=== PATIENT | male | born 1960 | race Caucasian/White ===

== ENCOUNTER → 2016-07-23 | Outpatient (CLI) | payer OTHER ==
[~2016-07-23] MED LIST: D 50CAP PO; GLIP5TAB15 PO; INVO100T PO; LISI10TA4 PO; LORATAB PO; OMEP40CA2 PO
--- NOTE | 2016-07-23 12:49 | REP ---
RIGHT HIP SERIES: Two views. HISTORY: Right hip pain. Comparison radiographs are from April 08, 2003. FINDINGS: AP and frog-leg views of the right hip demonstrate a smooth rounded femoral head and an intact hip joint space. There is mild superior acetabular spurring noted. No erosive change is seen. Periarticular soft tissues are unremarkable. IMPRESSION: Mild superior acetabular spurring. Otherwise negative right hip radiographs. Signed by Glen Pascual MD 07/23/2016 12:51 P
== END ==
LOC: M RAD 08:17
PROVIDERS: ATTEND Physician Assistant Medical
DX: M25.551 Pain in right hip (principal)

== ENCOUNTER → 2016-08-05 | Outpatient (REF) | payer OTHER ==
[2016-08-05 13:00] LABS: ALBUMIN 4.3 GM/DL (3.2-5.2); ALBUMIN/GLOBULIN RATIO 1.16 (1.00-1.93); ALKALINE PHOSPHATASE 69 U/L (45-117); ALT/SGPT 80 U/L (12-78); ANION GAP 6 MEQ/L (8-16); AST/SGOT 28 U/L (15-37); BILIRUBIN,TOTAL 0.5 MG/DL (0.2-1.0); BLOOD UREA NITROGEN 24 MG/DL (7-18); CARBON DIOXIDE LEVEL 33 MEQ/L (21-32); CHLORIDE LEVEL 103 MEQ/L (98-107); CHOLESTEROL LEVEL 168 MG/DL (<200); CREATININE FOR GFR 1.15 MG/DL (0.70-1.30); GLOMERULAR FILTRATION RATE > 60.0 (>56); GLUCOSE, FASTING 209 MG/DL (70-105); POTASSIUM SERUM 4.6 MEQ/L (3.5-5.1); SODIUM LEVEL 142 MEQ/L (136-145); TRIGLYCERIDES LEVEL 308 MG/DL (<150)
== END ==
LOC: M SFHCADAM 07:55
PROVIDERS: ATTEND Physician Assistant Medical
DX: E11.9 Type 2 diabetes mellitus without complications (principal); E78.4 Other hyperlipidemia; R55 Syncope and collapse; E55.9 Vitamin D deficiency, unspecified

== ENCOUNTER 2016-08-07 11:52 | Emergency (ER) | payer OTHER ==
[2016-08-07] MEDS ORDERED: KETOROLAC 30 MG/ML VIAL (J1885) As Ordered ONE (12:52)
--- NOTE | 2016-08-07 14:22 | EDDOCDS ---
Physician Documentation [facility] Name: Vito Humphries Age: 55 yrs Sex: Male : 1960 Arrival Date: 08/07/2016 Time: 11:52 Bed PR Private MD: Tara Rosario N. Disposition: 08/07/16 13:29 Discharged to Home/Self Care. Impression: Low back pain - mechanical. - Condition is Stable. - Discharge Instructions: Back Pain, Adult. - Prescriptions for Naprosyn 500 mg Oral Tablet - take 1 tablet by ORAL route 2 times per day take with food; 30 tablet. Valium 5 mg Oral Tablet - take 1 tablet by ORAL route every 8 hours As needed MDD: 3 tabs; 15 tablet. - Medication Reconciliation form. - Follow up: Tara Rosario; When: Call to arrange an appointment; Reason: Wound/Symptom Recheck, Recheck today's complaints, Worsening of conditions, Continuance of care. - Problem is an acute exacerbation. - Symptoms have improved. Historical: - Allergies: Metformin HCl (uncontrollable bowel movements); - Home Meds: 1. atorvastatin 40 mg oral tab 1 tab once daily 2. Invokana 100 mg oral tab 1 tab once daily 3. omeprazole 40 mg Oral cpDR 1 cap once daily 4. glipizide 5 mg Oral tab 1 tab once daily 5. loratadine 10 mg Oral tab 1 tab once daily 6. Vitamin D3 5,000 unit oral tab daily 7. spironolactone 25 mg Oral tab 0.5 tab once daily 8. losartan 50 mg oral tab 1 tab once daily 9. aspirin 81 mg Oral chew 1 tab once daily - PMHx: Diabetes - NIDDM: controlled; GERD; Hypertension; Seasonal Allergies; - PSHx: Shoulder Arthroplasty. Right; - Social history: Smoking status: Patient states former smoker of tobacco. No barriers to communication noted, The patient speaks fluent Yi. - Family history: No immediate family members are acutely ill. - : The pt / caregiver states he / she is not on anticoagulants. Home medication list is obtained from the patient, [employer] import data. - Exposure Risk Screening:: None identified. Vital Signs: 08/07 11:54 BP 105 / 58; Pulse 99; Resp 18 S; Temp 97.3(O); Pulse Ox 97% on R/A; Weight 103.42 kg / gr2 228 lbs (R); Height 6 ft. 0 in. (182.88 cm) (R); Pain 10/10; 13:40 BP 143 / 82; Pulse 71; Resp 17; Temp 97.4(T); Pulse Ox 98% on R/A; Pain 0/10; mb9 13:40 Pain 0/10; mb9 13:40 Pain 0/10; mb9 11:54 Body Mass Index 30.92 (103.42 kg, 182.88 cm) gr2 MDM: 12:45 Financial registration complete. lg 12:48 ketorolac 60 mg IM once ordered. cc10 12:48 Diazepam 10 mg IM once ordered. cc10 12:54 [facility] Payment Agreement was scanned into [employer] and attached to record. lg 13:16 Vital Signs ordered. cc10 Administered Medications: 13:02 Drug: ketorolac 60 mg [ketorolac 30 mg/mL (1 mL) injection solution (2 mL)] Route: IM; mb9 Site: right gluteus; 13:40 Follow up: Pain 0/10 Adult; Response: Confirmed pt not driving.; Pain is resolved mb9 13:02 Drug: Diazepam 10 mg [diazepam 5 mg/mL injection syringe (2 mL)] Route: IM; Site: left mb9 gluteus; 13:40 Follow up: Pain 0/10 Adult; Response: Confirmed pt not driving.; Pain is resolved mb9 Signatures: Vicky Eric, Reg Reg lg Kenyon Romero PA-C PAShahla cc10 Nisreen Hillman RN RN ms18 Foster Wiseman RN RN mb9 The chart was reviewed and I authenticate all verbal orders and agree with the evaluation and treatment provided.Attachments: 12:54 [facility] Payment Agreement lg MTDD
--- NOTE | 2016-08-07 14:22 | EDDOCDS ---
Nurse's Notes [facility] Name: Vito Humphries Age: 55 yrs Sex: Male : 1960 Arrival Date: 08/07/2016 Time: 11:52 Bed PR Private MD: Tara Rosario N. Diagnosis: Low back pain-mechanical Presentation: 08/07 11:59 Presenting complaint: Patient states: that Friday morning he was shoveling snow, he ms18 twisted around and pt reports that he "" his lower back. Pt states that when this happens he normally comes here and gets 2 shots in his lower back. Acute neurological deficits are not present. Mechanism of Injury: Turning. Adult Sepsis Screening: The patient does not have new or worsening altered mentation. Patient's respiratory rate is less than 22. Systolic blood pressure is greater than 100. Patient has a qSOFA score of 0- Negative Sepsis Screen. Suicide/Homicide risk assessment- the patient denies having any suicidal and/or homicidal ideations and does not present with any other emotional, behavioral or mental health complaints. 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 Transition of care: patient was not received from another setting of care. 11:59 Acuity: SHILA Level 4 ms18 11:59 Method Of Arrival: Walkin/Carried/Asstd ms18 Triage Assessment: 12:02 General: Appears in no apparent distress, uncomfortable, Behavior is appropriate for ms18 age, cooperative. Pain: Location: low back area Pain currently is 10 out of 10 on a pain scale. HIV screening NA for this visit Offered previously. Neurological: Level of Consciousness is awake, alert, obeys commands, Oriented to person, place, time. Respiratory: No deficits noted. Derm: Skin is pink, warm & dry. Musculoskeletal: Reports pain in low back area. Historical: - Allergies: Metformin HCl (uncontrollable bowel movements); - Home Meds: 1. atorvastatin 40 mg oral tab 1 tab once daily 2. Invokana 100 mg oral tab 1 tab once daily 3. omeprazole 40 mg Oral cpDR 1 cap once daily 4. glipizide 5 mg Oral tab 1 tab once daily 5. loratadine 10 mg Oral tab 1 tab once daily 6. Vitamin D3 5,000 unit oral tab daily 7. spironolactone 25 mg Oral tab 0.5 tab once daily 8. losartan 50 mg oral tab 1 tab once daily 9. aspirin 81 mg Oral chew 1 tab once daily - PMHx: Diabetes - NIDDM: controlled; GERD; Hypertension; Seasonal Allergies; - PSHx: Shoulder Arthroplasty. Right; - Social history: Smoking status: Patient states former smoker of tobacco. No barriers to communication noted, The patient speaks fluent Maltese. - Family history: No immediate family members are acutely ill. - : The pt / caregiver states he / she is not on anticoagulants. Home medication list is obtained from the patient, [employer] import data. - Exposure Risk Screening:: None identified. Screenin:02 Screening information is obtained from the patient. Fall risk: No risks identified. mb9 Assistance ADL's: requires no assistance with activities of daily living. Abuse/DV Screen: The patient / caregiver reports he/she is: not in a situation that causes fear, pain or injury. Nutritional screening: No deficits noted. Advance Directives: There is no active DNR order. home support is adequate. Assessment: 13:02 General: Appears uncomfortable, Behavior is cooperative. Pain: Location: low back area mb9 Pain currently is 8 out of 10 on a pain scale. Neurological: Level of Consciousness is awake, alert, Oriented to person, place, time. Respiratory: Airway is patent Respiratory effort is even, unlabored. 14:19 Reassessment: Patient appears in no apparent distress at this time. Patient states mb9 feeling better. General: Appears in no apparent distress, Behavior is appropriate for age, cooperative. Respiratory: Airway is patent Respiratory effort is even, unlabored. Vital Signs: 11:54 BP 105 / 58; Pulse 99; Resp 18 S; Temp 97.3(O); Pulse Ox 97% on R/A; Weight 103.42 kg gr2 (R); Height 6 ft. 0 in. (182.88 cm) (R); Pain 10/10; 13:40 BP 143 / 82; Pulse 71; Resp 17; Temp 97.4(T); Pulse Ox 98% on R/A; Pain 0/10; mb9 13:40 Pain 0/10; mb9 13:40 Pain 0/10; mb9 11:54 Body Mass Index 30.92 (103.42 kg, 182.88 cm) gr2 Vitals: 11:54 Log In Time: August 07, 2016 at 11:54. gr2 ED Course: 11:54 Patient visited by Briana Del Rio. gr2 11:54 aTra Rosario is Private Physician. gr2 11:54 Patient moved to Waiting gr2 11:57 Patient visited by Briana Del Rio. gr2 11:57 Patient moved to Pre RCE gr2 12:00 Triage Initiated ms18 12:26 Patient moved to Triage 1 mlb1 12:42 Kenyon Romero PA-C is PHCP. cc10 12:42 Noel Zhong MD is Attending Physician. cc10 12:43 Patient visited by Kenyon Romero PA-C. cc10 12:43 Patient visited by Kenyon Romero PA-C. cc10 12:54 [facility] Payment Agreement was scanned into [employer] and attached to record. lg 12:55 Patient moved to PR2 / 26 mb9 13:02 The patient / caregiver is instructed regarding the plan of care and ED course. mb9 13:29 Tara Rosario is Referral Physician. cc10 14:19 No IV's were initiated during this patient's visit. No procedures done that require mb9 assistance. Administered Medications: 13:02 Drug: ketorolac 60 mg [ketorolac 30 mg/mL (1 mL) injection solution (2 mL)] Route: IM; mb9 Site: right gluteus; 13:40 Follow up: Pain 0/10 Adult; Response: Confirmed pt not driving.; Pain is resolved mb9 13:02 Drug: Diazepam 10 mg [diazepam 5 mg/mL injection syringe (2 mL)] Route: IM; Site: left mb9 gluteus; 13:40 Follow up: Pain 0/10 Adult; Response: Confirmed pt not driving.; Pain is resolved mb9 Order Results: There are currently no results for this order. Outcome: 13:29 Discharge ordered by Provider. cc10 14:19 Discharge Assessment: Patient awake, alert and oriented x 3. No cognitive and/or mb9 functional deficits noted. Patient verbalized understanding of disposition instructions. pt states, "I have a friend coming to pick me up". pt cautioned against driving after having received Valium. pt verbalized his understanding. patient administered narcotics - yes. Pt provided with safe discharge. The following High Risk Discharge criteria are identified: None. Discharged to home ambulatory, with family, with friend. Condition: good Condition: stable Condition: improved. No special radiology studies were completed. Property :Personal belongings accompany Pt. 14:21 Patient left the ED. mb9 Signatures: Vicky Eric, Reg Reg lg Foster Marr RN RN mlb1 Briana Del Rio gr2 Kenyon Romero PA-C PAShahla cc10 Nisreen Hillman RN RN ms18 Foster Wiseman RN RN mb9 MTDD
--- NOTE | 2016-08-09 15:22 | EDDOCDS ---
Nurse's Notes [facility] Name: Vito Humphries Age: 55 yrs Sex: Male : 1960 Arrival Date: 08/07/2016 Time: 11:52 Bed PR Private MD: Tara Rosario N. Diagnosis: Low back pain-mechanical Presentation: 08/07 11:59 Presenting complaint: Patient states: that Friday morning he was shoveling snow, he ms18 twisted around and pt reports that he "" his lower back. Pt states that when this happens he normally comes here and gets 2 shots in his lower back. Acute neurological deficits are not present. Mechanism of Injury: Turning. Adult Sepsis Screening: The patient does not have new or worsening altered mentation. Patient's respiratory rate is less than 22. Systolic blood pressure is greater than 100. Patient has a qSOFA score of 0- Negative Sepsis Screen. Suicide/Homicide risk assessment- the patient denies having any suicidal and/or homicidal ideations and does not present with any other emotional, behavioral or mental health complaints. 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 Transition of care: patient was not received from another setting of care. 11:59 Acuity: SHILA Level 4 ms18 11:59 Method Of Arrival: Walkin/Carried/Asstd ms18 Triage Assessment: 12:02 General: Appears in no apparent distress, uncomfortable, Behavior is appropriate for ms18 age, cooperative. Pain: Location: low back area Pain currently is 10 out of 10 on a pain scale. HIV screening NA for this visit Offered previously. Neurological: Level of Consciousness is awake, alert, obeys commands, Oriented to person, place, time. Respiratory: No deficits noted. Derm: Skin is pink, warm & dry. Musculoskeletal: Reports pain in low back area. Historical: - Allergies: Metformin HCl (uncontrollable bowel movements); - Home Meds: 1. atorvastatin 40 mg oral tab 1 tab once daily 2. Invokana 100 mg oral tab 1 tab once daily 3. omeprazole 40 mg Oral cpDR 1 cap once daily 4. glipizide 5 mg Oral tab 1 tab once daily 5. loratadine 10 mg Oral tab 1 tab once daily 6. Vitamin D3 5,000 unit oral tab daily 7. spironolactone 25 mg Oral tab 0.5 tab once daily 8. losartan 50 mg oral tab 1 tab once daily 9. aspirin 81 mg Oral chew 1 tab once daily - PMHx: Diabetes - NIDDM: controlled; GERD; Hypertension; Seasonal Allergies; - PSHx: Shoulder Arthroplasty. Right; - Social history: Smoking status: Patient states former smoker of tobacco. No barriers to communication noted, The patient speaks fluent Ukrainian. - Family history: No immediate family members are acutely ill. - : The pt / caregiver states he / she is not on anticoagulants. Home medication list is obtained from the patient, [employer] import data. - Exposure Risk Screening:: None identified. Screenin:02 Screening information is obtained from the patient. Fall risk: No risks identified. mb9 Assistance ADL's: requires no assistance with activities of daily living. Abuse/DV Screen: The patient / caregiver reports he/she is: not in a situation that causes fear, pain or injury. Nutritional screening: No deficits noted. Advance Directives: There is no active DNR order. home support is adequate. Assessment: 13:02 General: Appears uncomfortable, Behavior is cooperative. Pain: Location: low back area mb9 Pain currently is 8 out of 10 on a pain scale. Neurological: Level of Consciousness is awake, alert, Oriented to person, place, time. Respiratory: Airway is patent Respiratory effort is even, unlabored. 14:19 Reassessment: Patient appears in no apparent distress at this time. Patient states mb9 feeling better. General: Appears in no apparent distress, Behavior is appropriate for age, cooperative. Respiratory: Airway is patent Respiratory effort is even, unlabored. Vital Signs: 11:54 BP 105 / 58; Pulse 99; Resp 18 S; Temp 97.3(O); Pulse Ox 97% on R/A; Weight 103.42 kg gr2 (R); Height 6 ft. 0 in. (182.88 cm) (R); Pain 10/10; 13:40 BP 143 / 82; Pulse 71; Resp 17; Temp 97.4(T); Pulse Ox 98% on R/A; Pain 0/10; mb9 13:40 Pain 0/10; mb9 13:40 Pain 0/10; mb9 11:54 Body Mass Index 30.92 (103.42 kg, 182.88 cm) gr2 Vitals: 11:54 Log In Time: August 07, 2016 at 11:54. gr2 ED Course: 11:54 Patient visited by Briana Del Rio. gr2 11:54 Tara Rosario is Private Physician. gr2 11:54 Patient moved to Waiting gr2 11:57 Patient visited by Briana Del Rio. gr2 11:57 Patient moved to Pre RCE gr2 12:00 Triage Initiated ms18 12:26 Patient moved to Triage 1 mlb1 12:42 Kenyon Romero PA-C is PHCP. cc10 12:42 Noel Zhong MD is Attending Physician. cc10 12:43 Patient visited by Kenyon Romero PA-C. cc10 12:43 Patient visited by Kenyon Romero PA-C. cc10 12:54 [facility] Payment Agreement was scanned into [employer] and attached to record. lg 12:55 Patient moved to PR2 / 26 mb9 13:02 The patient / caregiver is instructed regarding the plan of care and ED course. mb9 13:29 Tara Rosario is Referral Physician. cc10 14:19 No IV's were initiated during this patient's visit. No procedures done that require mb9 assistance. 15:29 T-Sheet-- Draft Copy was scanned into [employer] and attached to record. klr Administered Medications: 13:02 Drug: ketorolac 60 mg [ketorolac 30 mg/mL (1 mL) injection solution (2 mL)] Route: IM; mb9 Site: right gluteus; 13:40 Follow up: Pain 0/10 Adult; Response: Confirmed pt not driving.; Pain is resolved mb9 13:02 Drug: Diazepam 10 mg [diazepam 5 mg/mL injection syringe (2 mL)] Route: IM; Site: left mb9 gluteus; 13:40 Follow up: Pain 0/10 Adult; Response: Confirmed pt not driving.; Pain is resolved mb9 Order Results: There are currently no results for this order. Outcome: 13:29 Discharge ordered by Provider. cc10 14:19 Discharge Assessment: Patient awake, alert and oriented x 3. No cognitive and/or mb9 functional deficits noted. Patient verbalized understanding of disposition instructions. pt states, "I have a friend coming to pick me up". pt cautioned against driving after having received Valium. pt verbalized his understanding. patient administered narcotics - yes. Pt provided with safe discharge. The following High Risk Discharge criteria are identified: None. Discharged to home ambulatory, with family, with friend. Condition: good Condition: stable Condition: improved. No special radiology studies were completed. Property :Personal belongings accompany Pt. 14:21 Patient left the ED. mb9 Signatures: Vicky Eric, Reg Reg lg Foster Marr RN RN mlb1 Briana Del Rio gr2 Kenyon Romero PA-C PA-C cc10 Nisreen Hillman RN RN ms18 Foster Wiseman RN RN mb9 Ewa Garcia Chart Complete MTDD
--- NOTE | 2016-08-09 15:22 | EDDOCDS ---
Physician Documentation [facility] Name: Vito Humphries Age: 55 yrs Sex: Male : 1960 Arrival Date: 08/07/2016 Time: 11:52 Bed PR Private MD: Tara Rosario N. Disposition: 08/07/16 13:29 Discharged to Home/Self Care. Impression: Low back pain - mechanical. - Condition is Stable. - Discharge Instructions: Back Pain, Adult. - Prescriptions for Naprosyn 500 mg Oral Tablet - take 1 tablet by ORAL route 2 times per day take with food; 30 tablet. Valium 5 mg Oral Tablet - take 1 tablet by ORAL route every 8 hours As needed MDD: 3 tabs; 15 tablet. - Medication Reconciliation form. - Follow up: Tara Rosario; When: Call to arrange an appointment; Reason: Wound/Symptom Recheck, Recheck today's complaints, Worsening of conditions, Continuance of care. - Problem is an acute exacerbation. - Symptoms have improved. Historical: - Allergies: Metformin HCl (uncontrollable bowel movements); - Home Meds: 1. atorvastatin 40 mg oral tab 1 tab once daily 2. Invokana 100 mg oral tab 1 tab once daily 3. omeprazole 40 mg Oral cpDR 1 cap once daily 4. glipizide 5 mg Oral tab 1 tab once daily 5. loratadine 10 mg Oral tab 1 tab once daily 6. Vitamin D3 5,000 unit oral tab daily 7. spironolactone 25 mg Oral tab 0.5 tab once daily 8. losartan 50 mg oral tab 1 tab once daily 9. aspirin 81 mg Oral chew 1 tab once daily - PMHx: Diabetes - NIDDM: controlled; GERD; Hypertension; Seasonal Allergies; - PSHx: Shoulder Arthroplasty. Right; - Social history: Smoking status: Patient states former smoker of tobacco. No barriers to communication noted, The patient speaks fluent Japanese. - Family history: No immediate family members are acutely ill. - : The pt / caregiver states he / she is not on anticoagulants. Home medication list is obtained from the patient, [employer] import data. - Exposure Risk Screening:: None identified. Vital Signs: 08/07 11:54 BP 105 / 58; Pulse 99; Resp 18 S; Temp 97.3(O); Pulse Ox 97% on R/A; Weight 103.42 kg / gr2 228 lbs (R); Height 6 ft. 0 in. (182.88 cm) (R); Pain 10/10; 13:40 BP 143 / 82; Pulse 71; Resp 17; Temp 97.4(T); Pulse Ox 98% on R/A; Pain 0/10; mb9 13:40 Pain 0/10; mb9 13:40 Pain 0/10; mb9 11:54 Body Mass Index 30.92 (103.42 kg, 182.88 cm) gr2 MDM: 12:45 Financial registration complete. lg 12:48 ketorolac 60 mg IM once ordered. cc10 12:48 Diazepam 10 mg IM once ordered. cc10 12:54 [facility] Payment Agreement was scanned into [employer] and attached to record. lg 13:16 Vital Signs ordered. cc10 15:29 T-Sheet-- Draft Copy was scanned into [employer] and attached to record. klr Administered Medications: 13:02 Drug: ketorolac 60 mg [ketorolac 30 mg/mL (1 mL) injection solution (2 mL)] Route: IM; mb9 Site: right gluteus; 13:40 Follow up: Pain 0/10 Adult; Response: Confirmed pt not driving.; Pain is resolved mb9 13:02 Drug: Diazepam 10 mg [diazepam 5 mg/mL injection syringe (2 mL)] Route: IM; Site: left mb9 gluteus; 13:40 Follow up: Pain 0/10 Adult; Response: Confirmed pt not driving.; Pain is resolved mb9 Signatures: Vicky Eric, Tonio Reg lg Kenyon Romero PA-C PA-C cc10 Nisreen Hillman RN RN ms18 Foster Wiseman RN RN mb9 Ewa Garcia klr The chart was reviewed and I authenticate all verbal orders and agree with the evaluation and treatment provided.Attachments: 12:54 [facility] Payment Agreement lg 15:29 T-Sheet-- Draft Copy klr Chart Complete MTDD
--- NOTE | 2016-08-09 15:22 | EDDOCDS ---
Physician Documentation [facility] Name: Vito Humphries Age: 55 yrs Sex: Male : 1960 Arrival Date: 08/07/2016 Time: 11:52 Bed PR Private MD: Tara Rosario N. Disposition: 08/07/16 13:29 Discharged to Home/Self Care. Impression: Low back pain - mechanical. - Condition is Stable. - Discharge Instructions: Back Pain, Adult. - Prescriptions for Naprosyn 500 mg Oral Tablet - take 1 tablet by ORAL route 2 times per day take with food; 30 tablet. Valium 5 mg Oral Tablet - take 1 tablet by ORAL route every 8 hours As needed MDD: 3 tabs; 15 tablet. - Medication Reconciliation form. - Follow up: Tara Rosario; When: Call to arrange an appointment; Reason: Wound/Symptom Recheck, Recheck today's complaints, Worsening of conditions, Continuance of care. - Problem is an acute exacerbation. - Symptoms have improved. Historical: - Allergies: Metformin HCl (uncontrollable bowel movements); - Home Meds: 1. atorvastatin 40 mg oral tab 1 tab once daily 2. Invokana 100 mg oral tab 1 tab once daily 3. omeprazole 40 mg Oral cpDR 1 cap once daily 4. glipizide 5 mg Oral tab 1 tab once daily 5. loratadine 10 mg Oral tab 1 tab once daily 6. Vitamin D3 5,000 unit oral tab daily 7. spironolactone 25 mg Oral tab 0.5 tab once daily 8. losartan 50 mg oral tab 1 tab once daily 9. aspirin 81 mg Oral chew 1 tab once daily - PMHx: Diabetes - NIDDM: controlled; GERD; Hypertension; Seasonal Allergies; - PSHx: Shoulder Arthroplasty. Right; - Social history: Smoking status: Patient states former smoker of tobacco. No barriers to communication noted, The patient speaks fluent Japanese. - Family history: No immediate family members are acutely ill. - : The pt / caregiver states he / she is not on anticoagulants. Home medication list is obtained from the patient, [employer] import data. - Exposure Risk Screening:: None identified. Vital Signs: 08/07 11:54 BP 105 / 58; Pulse 99; Resp 18 S; Temp 97.3(O); Pulse Ox 97% on R/A; Weight 103.42 kg / gr2 228 lbs (R); Height 6 ft. 0 in. (182.88 cm) (R); Pain 10/10; 13:40 BP 143 / 82; Pulse 71; Resp 17; Temp 97.4(T); Pulse Ox 98% on R/A; Pain 0/10; mb9 13:40 Pain 0/10; mb9 13:40 Pain 0/10; mb9 11:54 Body Mass Index 30.92 (103.42 kg, 182.88 cm) gr2 MDM: 12:45 Financial registration complete. lg 12:48 ketorolac 60 mg IM once ordered. cc10 12:48 Diazepam 10 mg IM once ordered. cc10 12:54 [facility] Payment Agreement was scanned into [employer] and attached to record. lg 13:16 Vital Signs ordered. cc10 15:29 T-Sheet-- Draft Copy was scanned into [employer] and attached to record. klr Administered Medications: 13:02 Drug: ketorolac 60 mg [ketorolac 30 mg/mL (1 mL) injection solution (2 mL)] Route: IM; mb9 Site: right gluteus; 13:40 Follow up: Pain 0/10 Adult; Response: Confirmed pt not driving.; Pain is resolved mb9 13:02 Drug: Diazepam 10 mg [diazepam 5 mg/mL injection syringe (2 mL)] Route: IM; Site: left mb9 gluteus; 13:40 Follow up: Pain 0/10 Adult; Response: Confirmed pt not driving.; Pain is resolved mb9 Signatures: Vicky Eric, Tonio Reg lg Kenyon Romero PA-C PA-C cc10 Nisreen Hillman RN RN ms18 Foster Wiseman RN RN mb9 Ewa Garcia klr The chart was reviewed and I authenticate all verbal orders and agree with the evaluation and treatment provided.Attachments: 12:54 [facility] Payment Agreement lg 15:29 T-Sheet-- Draft Copy klr Chart Complete MTDD
== END 2016-08-07 14:21 | disposition home or self-care (01) ==
LOC: M ED 11:52
DX: G89.29 Other chronic pain (principal); M54.5 Low back pain; E11.9 Type 2 diabetes mellitus without complications; K21.9 Gastro-esophageal reflux disease without esophagitis; I10 Essential (primary) hypertension; J30.2 Other seasonal allergic rhinitis; Z96.611 Presence of right artificial shoulder joint; Z87.891 Personal history of nicotine dependence; Z79.82 Long term (current) use of aspirin; Z79.899 Other long term (current) drug therapy; Z88.8 Allergy status to other drugs, medicaments and biological substances
CPT/HCPCS: 96372; 99283; J1885; J3360

== ENCOUNTER → 2016-11-06 | Outpatient (CLI) | payer OTHER ==
[2016-11-06 08:45] LABS: ALBUMIN 3.8 GM/DL (3.2-5.2); ALBUMIN/GLOBULIN RATIO 1.12 (1.00-1.93); ALKALINE PHOSPHATASE 57 U/L (45-117); ALT/SGPT 83 U/L (12-78); ANION GAP 4 MEQ/L (8-16); AST/SGOT 40 U/L (15-37); BILIRUBIN,TOTAL 0.8 MG/DL (0.2-1.0); BLOOD UREA NITROGEN 22 MG/DL (7-18); CALCIUM LEVEL 8.7 MG/DL (8.5-10.1); CARBON DIOXIDE LEVEL 32 MEQ/L (21-32); CHLORIDE LEVEL 105 MEQ/L (98-107); CREATININE FOR GFR 1.03 MG/DL (0.70-1.30); GLOMERULAR FILTRATION RATE > 60.0 (>56); GLUCOSE, FASTING 110 MG/DL (70-105); POTASSIUM SERUM 3.9 MEQ/L (3.5-5.1); SODIUM LEVEL 141 MEQ/L (136-145); TOTAL PROTEIN 7.2 GM/DL (6.4-8.2)
== END ==
LOC: M LAB 07:35
PROVIDERS: ATTEND Physician Assistant Medical
DX: E11.9 Type 2 diabetes mellitus without complications (principal)

== ENCOUNTER → 2016-11-12 | Outpatient (REF) | payer OTHER ==
[2016-11-12 12:59] LABS: FREE T4 0.87 NG/DL (0.76-1.46)
== END ==
LOC: M SFHCADAM 07:29
PROVIDERS: ATTEND Physician Assistant Medical
DX: R79.89 Other specified abnormal findings of blood chemistry (principal)

== ENCOUNTER 2016-12-05 20:20 | Emergency (ER) | payer OTHER ==
[~2016-12-05] VITALS: Ht 182.9 cm; Wt 99.4 kg
[2016-12-05] MEDS ORDERED: LOSA50TA20 PO (20:43)
[2016-12-06] MEDS ORDERED: PERCOCET 5MG/325MG TAB PO ONE (00:15)
[2016-12-06] MEDS ORDERED: KETOROLAC 60 MG/2 ML VIAL (J1885) IM ONE (00:15)
[2016-12-06] MEDS ORDERED: diazePAM 5 MG TAB PO ONE (00:15)
[2016-12-06] MEDS ORDERED: NAPR500T PO (00:48)
[2016-12-06] MEDS ORDERED: VALI5TAB PO (00:48)
[2016-12-06 00:55] VITALS: BP 130/75
== END 2016-12-06 00:59 | disposition home or self-care (01) ==
LOC: M ED 21:33
DX: S39.012A Strain of muscle, fascia and tendon of lower back, initial encounter (principal); S16.1XXA Strain of muscle, fascia and tendon at neck level, initial encounter; S46.912A Strain of unspecified muscle, fascia and tendon at shoulder and upper arm level, left arm, initial encounter; X50.1XXA Overexertion from prolonged static or awkward postures, initial encounter; Y92.9 Unspecified place or not applicable; Y93.89 Activity, other specified; Y99.9 Unspecified external cause status; E11.9 Type 2 diabetes mellitus without complications; I10 Essential (primary) hypertension; E78.00 Pure hypercholesterolemia, unspecified; G47.30 Sleep apnea, unspecified; Z79.84 Long term (current) use of oral hypoglycemic drugs; Z79.899 Other long term (current) drug therapy; Z88.8 Allergy status to other drugs, medicaments and biological substances

== ENCOUNTER → 2017-03-18 | Outpatient (REF) | payer OTHER ==
[~2017-03-18] MED LIST changes: +GLIP1TAB49 PO; -GLIP5TAB15 PO; +LOSA50TA20 PO; +NAPR500T PO; +VALI5TAB PO
[2017-03-18 15:06] LABS: ALBUMIN/GLOBULIN RATIO 1.08 (1.00-1.93); ALKALINE PHOSPHATASE 62 U/L (45-117); ALT/SGPT 85 U/L (12-78); ANION GAP 8 MEQ/L (8-16); AST/SGOT 31 U/L (15-37); BILIRUBIN,TOTAL 0.7 MG/DL (0.2-1.0); BLOOD UREA NITROGEN 22 MG/DL (7-18); CALCIUM LEVEL 9.5 MG/DL (8.5-10.1); CARBON DIOXIDE LEVEL 29 MEQ/L (21-32); CHLORIDE LEVEL 106 MEQ/L (98-107); CHOLESTEROL LEVEL 149 MG/DL (<200); CREATININE FOR GFR 0.94 MG/DL (0.70-1.30); FREE T4 0.97 NG/DL (0.76-1.46); GLOMERULAR FILTRATION RATE > 60.0 (>56); GLUCOSE, FASTING 112 MG/DL (70-105); POTASSIUM SERUM 4.2 MEQ/L (3.5-5.1); SODIUM LEVEL 143 MEQ/L (136-145); TOTAL PROTEIN 7.7 GM/DL (6.4-8.2); TRIGLYCERIDES LEVEL 126 MG/DL (<150)
== END ==
LOC: M SFHCADAM 07:48
PROVIDERS: ATTEND Physician Assistant Medical
DX: E11.9 Type 2 diabetes mellitus without complications (principal); R79.89 Other specified abnormal findings of blood chemistry; E78.4 Other hyperlipidemia; E55.9 Vitamin D deficiency, unspecified

== ENCOUNTER → 2017-09-15 | Outpatient (CLI) | payer OTHER | LOC: M ADAMS 13:32 | DX: M25.512 Pain in left shoulder (principal) | CPT/HCPCS: 73030 ==

== ENCOUNTER → 2017-09-15 | Outpatient (REF) | payer OTHER ==
[2017-09-15 20:05] LABS: ALBUMIN 4.3 GM/DL (3.2-5.2); ALBUMIN/GLOBULIN RATIO 1.34 (1.00-1.93); ALKALINE PHOSPHATASE 64 U/L (45-117); ALT/SGPT 76 U/L (12-78); ANION GAP 4 MEQ/L (8-16); AST/SGOT 36 U/L (7-37); BILIRUBIN,TOTAL 0.6 MG/DL (0.2-1.0); BLOOD UREA NITROGEN 25 MG/DL (7-18); CALCIUM LEVEL 9.5 MG/DL (8.5-10.1); CARBON DIOXIDE LEVEL 30 MEQ/L (21-32); CHLORIDE LEVEL 108 MEQ/L (98-107); CREATININE FOR GFR 0.86 MG/DL (0.70-1.30); GLOMERULAR FILTRATION RATE > 60.0 (>56); GLUCOSE, FASTING 54 MG/DL (70-100); POTASSIUM SERUM 3.7 MEQ/L (3.5-5.1); SODIUM LEVEL 142 MEQ/L (136-145); TOTAL PROTEIN 7.5 GM/DL (6.4-8.2)
[2017-09-15 20:08] LABS: TOTAL 25(OH) VITAMIN D 40.5 NG/ML (30.0-100.0)
[2017-09-15 20:42] LABS: ESTIMATED AVERAGE GLUCOSE 151 MG/DL (60-110); HEMOGLOBIN A1c 6.9 %
== END ==
LOC: M SFHCADAM 13:22
DX: E11.9 Type 2 diabetes mellitus without complications (principal); E55.9 Vitamin D deficiency, unspecified; E78.4 Other hyperlipidemia; K21.0 Gastro-esophageal reflux disease with esophagitis

== ENCOUNTER 2017-12-11 15:53 | Emergency (ER) | payer OTHER ==
[2017-12-11] MEDS: CYCLOBENZAPRINE 10 MG TAB PO (17:44)
[2017-12-11] MEDS: KETOROLAC 60 MG/2 ML VIAL (J1885) IM (17:45)
== END 2017-12-11 20:16 | disposition home or self-care (01) ==
LOC: M ED 15:53
DX: M46.1 Sacroiliitis, not elsewhere classified (principal); N50.811 Right testicular pain; K40.20 Bilateral inguinal hernia, without obstruction or gangrene, not specified as recurrent; E11.9 Type 2 diabetes mellitus without complications; I10 Essential (primary) hypertension; Z87.19 Personal history of other diseases of the digestive system; Z88.8 Allergy status to other drugs, medicaments and biological substances; Z79.899 Other long term (current) drug therapy
CPT/HCPCS: J1885

== ENCOUNTER → 2018-06-29 | Outpatient (CLI) | payer OTHER ==
[~2018-06-29] MED LIST changes: +ALOG25TA PO; +CYCL10TA PO; -GLIP1TAB49 PO; +GLIP5TAB20 PO; -LOSA50TA20 PO; +LOSA50TA88 PO; +NAPR-50 PO; -NAPR500T PO; +PRED20TA PO
[2018-06-29 15:22] LABS: BLOOD UREA NITROGEN 28 MG/DL (7-18); CREATININE FOR GFR 1.28 MG/DL (0.70-1.30); GLOMERULAR FILTRATION RATE > 60.0 (>56)
== END ==
LOC: M LAB 14:23
PROVIDERS: ATTEND Physician Assistant Surgical
DX: Z01.812 Encounter for preprocedural laboratory examination (principal)

== ENCOUNTER → 2018-07-30 | Outpatient (CLI) | payer OTHER ==
[2018-07-30 10:28] LABS: HEMOGLOBIN A1c 11.9 %
[2018-07-30 10:42] LABS: ALBUMIN 3.9 GM/DL (3.2-5.2); ALT/SGPT 55 U/L (12-78); BILIRUBIN,TOTAL 0.8 MG/DL (0.2-1.0); BLOOD UREA NITROGEN 16 MG/DL (7-18); CALCIUM LEVEL 8.6 MG/DL (8.5-10.1); CARBON DIOXIDE LEVEL 33 MEQ/L (21-32); CHLORIDE LEVEL 101 MEQ/L (98-107); CHOLESTEROL LEVEL 159 MG/DL (<200); CHOLESTEROL RISK RATIO 4.818 (<5); CREATININE FOR GFR 0.93 MG/DL (0.70-1.30); GLOMERULAR FILTRATION RATE > 60.0 (>56); GLUCOSE, FASTING 291 MG/DL (70-100); HDL CHOLESTEROL 33 MG/DL (>40); LDL CHOLESTEROL 89 MG/DL (<100); NON-HDL-C 126 MG/DL; POTASSIUM SERUM 4.4 MEQ/L (3.5-5.1); SODIUM LEVEL 140 MEQ/L (136-145); TRIGLYCERIDES LEVEL 186 MG/DL (<150)
== END ==
LOC: M LAB 09:43
PROVIDERS: ATTEND Physician Assistant Medical
DX: E11.65 Type 2 diabetes mellitus with hyperglycemia (principal); E55.9 Vitamin D deficiency, unspecified; E78.49 Other hyperlipidemia

== ENCOUNTER → 2018-08-20 | Outpatient (CLI) | payer OTHER ==
[2018-08-20 13:09] LABS: ALT/SGPT 53 U/L (12-78); BILIRUBIN,TOTAL 0.7 MG/DL (0.2-1.0); BLOOD UREA NITROGEN 18 MG/DL (7-18); CALCIUM LEVEL 8.7 MG/DL (8.5-10.1); CARBON DIOXIDE LEVEL 33 MEQ/L (21-32); CHLORIDE LEVEL 105 MEQ/L (98-107); CHOLESTEROL LEVEL 148 MG/DL (<200); CHOLESTEROL RISK RATIO 4.484 (<5); CREATININE FOR GFR 0.83 MG/DL (0.70-1.30); GLOMERULAR FILTRATION RATE > 60.0 (>56); GLUCOSE, FASTING 85 MG/DL (70-100); HDL CHOLESTEROL 33 MG/DL (>40); HEMOGLOBIN A1c 8.8 %; LDL CHOLESTEROL 80 MG/DL (<100); NON-HDL-C 115 MG/DL; POTASSIUM SERUM 3.8 MEQ/L (3.5-5.1); SODIUM LEVEL 142 MEQ/L (136-145); TOTAL PROTEIN 7.4 GM/DL (6.4-8.2); TRIGLYCERIDES LEVEL 177 MG/DL (<150)
== END ==
LOC: M LAB 11:43
PROVIDERS: ATTEND Physician Assistant Medical
DX: E11.65 Type 2 diabetes mellitus with hyperglycemia (principal); E55.9 Vitamin D deficiency, unspecified; E78.49 Other hyperlipidemia

== ENCOUNTER → 2018-08-20 | Outpatient (REF) | payer OTHER | LOC: M SFHCADAM 11:12 | PROVIDERS: ATTEND Physician Assistant Medical | DX: Z53.9 Procedure and treatment not carried out, unspecified reason (principal); E11.65 Type 2 diabetes mellitus with hyperglycemia; E55.9 Vitamin D deficiency, unspecified; E78.49 Other hyperlipidemia; E11.9 Type 2 diabetes mellitus without complications ==

== ENCOUNTER → 2018-08-24 | Outpatient (REF) | payer OTHER | LOC: M LABDRAW1 12:16 | PROVIDERS: ATTEND Internal Medicine Endocrinology, Diabetes & Metabolism | DX: E11.65 Type 2 diabetes mellitus with hyperglycemia (principal) ==

== ENCOUNTER 2019-01-18 12:59 | Day surgery (SDC) | payer OTHER ==
[~2019-01-18] VITALS: Ht 182.9 cm; Wt 93.0 kg
[~2019-01-18 12:59] MED LIST changes: +ASPI81TA85 PO; +ATOR80TA59 PO; +BASA100I SC; +CLAR10TA7 PO; +D31000CA4 PO; +LISI-542 PO; +MELO15TA28 PO; -NAPR-50 PO; +NAPR-837 PO; +REPA1TAB4 PO; +SPIR-10 PO; +STEG5TAB PO; +VITA500054 PO
[2019-01-18] MEDS ORDERED: fentaNYL 100 MCG/2 ML INJECTION (J3010) As Ordered ONE (14:46)
--- NOTE | 2019-01-18 15:04 | ROOR ---
Patient Name: Vito Humphries Procedure Date: 01/18/2019 2:44 PM Date of : 1960 Age: 58 Room: [facility] Gender: Male Note Status: Finalized Procedure: Upper GI endoscopy Indications: Surveillance for malignancy due to personal history of Bardales's esophagus, Heartburn Providers: Toney ROSE MD Referring MD: DINO Lopez Requesting Provider: Medicines: Monitored Anesthesia Care Complications: No immediate complications. Procedure: Pre-Anesthesia Assessment: - The heart rate, respiratory rate, oxygen saturations, blood pressure, adequacy of pulmonary ventilation, and response to care were monitored throughout the procedure. The Endoscope was introduced through the mouth, and advanced to the second part of duodenum. The upper GI endoscopy was accomplished without difficulty. The patient tolerated the procedure well. Findings: There were esophageal mucosal changes consistent with short-segment Bardales's esophagus present in the lower third of the esophagus. The maximum longitudinal extent of these mucosal changes was 1 cm in length. (Smooth, no nodularity) Mucosa was biopsied with a cold forceps for histology from 40 to 41 cm from the incisors. The exam of the esophagus was otherwise normal. The entire examined stomach was normal. The examined duodenum was normal. Impression: - Esophageal mucosal changes consistent with short-segment (1 cm) Bardales's esophagus. Biopsied. - Normal stomach. - Normal examined duodenum. Recommendation: - Continue present medications. - Await pathology results. - Repeat upper endoscopy in 3 years for surveillance. Toney Rose MD Toney ROSE MD 01/18/2019 3:04:43 PM Electronically signed by Toney ROSE MD Number of Addenda: 0 Note Initiated On: 01/18/2019 2:44 PM Estimated Blood Loss: Estimated blood loss: none.
[2019-01-18] MEDS ORDERED: LIDOCAINE 2% INJ 100 MG/5 ML SDV (FOR ANES.) As Ordered ONE (15:23)
[2019-01-18] MEDS ORDERED: PROPOFOL 200 MG/20 ML VIAL As Ordered ONE (15:23)
[2019-01-18 15:25] VITALS: BP 128/71
[2019-01-19] MEDS ORDERED: NS 1,000 ML IV ONE (06:00)
== END 2019-01-18 15:31 | disposition home or self-care (01) ==
LOC: M OPP 12:59
PROVIDERS: ATTEND Internal Medicine Gastroenterology
DX: K22.70 Barrett's esophagus without dysplasia (principal); R12 Heartburn; E78.5 Hyperlipidemia, unspecified; I25.10 Atherosclerotic heart disease of native coronary artery without angina pectoris; I10 Essential (primary) hypertension; E11.9 Type 2 diabetes mellitus without complications; K44.9 Diaphragmatic hernia without obstruction or gangrene; K21.9 Gastro-esophageal reflux disease without esophagitis; M19.90 Unspecified osteoarthritis, unspecified site; M54.89 Other dorsalgia; G47.30 Sleep apnea, unspecified; R06.83 Snoring; Z88.8 Allergy status to other drugs, medicaments and biological substances; Z79.82 Long term (current) use of aspirin; Z79.84 Long term (current) use of oral hypoglycemic drugs; Z79.899 Other long term (current) drug therapy
CPT/HCPCS: 43239; 88305; J3010

== ENCOUNTER 2019-01-21 16:03 | Emergency (ER) | payer OTHER ==
[~2019-01-21] VITALS: Ht 182.9 cm; Wt 96.0 kg
[~2019-01-21 16:03] MED LIST changes: -OMEP40CA2 PO; +OMEP40CA97 PO
--- NOTE | 2019-01-21 17:09 | REP ---
Lumbar spine five views: Comparison is 12/11/2017. Vertebral body heights, interspacing alignment are normal and unchanged. There are bridging osteophytes at every lumbar level compatible with mild degenerative disc disease versus diffuse idiopathic skeletal hyperostosis. This is unchanged. There is no spondylolysis or spondylolisthesis. The pedicles, facets and sacroiliac articulations are unremarkable. Impression: Multiple vertebral osteophytes compatible with multilevel degenerative disc disease versus diffuse idiopathic skeletal hyperostosis. No interval change. Electronically Signed by Mani Baez MD 01/21/2019 05:00 P
[2019-01-21] MEDS ORDERED: ADACEL/BOOSTRIX VACCINE (DIPHTH/PERTUSS/ACELL/TETANUS)0.5ML SYR (90715) IM ONE (18:15)
[2019-01-21] MEDS ORDERED: LIDOCAINE 5% (LIDODERM) PATCH TD ONE (18:15)
[2019-01-21] MEDS ORDERED: KETOROLAC 60 MG/2 ML VIAL (J1885) IM ONE (18:15)
[2019-01-21] MEDS ORDERED: LIDOCAINE W/EPINEPHRINE 1% 20ML VIAL SC ONE (18:15)
[2019-01-21] MEDS ORDERED: ROBA500T PO (19:11)
[2019-01-21 19:21] VITALS: BP 140/88
[2019-01-21] MEDS ORDERED: **NOTE PATIENT COMMENT** MISC XX SCH (21:00)
== END 2019-01-21 19:26 | disposition home or self-care (01) ==
LOC: M ED 16:03
DX: S39.012A Strain of muscle, fascia and tendon of lower back, initial encounter (principal); S81.811A Laceration without foreign body, right lower leg, initial encounter; S50.311A Abrasion of right elbow, initial encounter; W01.0XXA Fall on same level from slipping, tripping and stumbling without subsequent striking against object, initial encounter; Y92.89 Other specified places as the place of occurrence of the external cause; K40.20 Bilateral inguinal hernia, without obstruction or gangrene, not specified as recurrent; M51.9 Unspecified thoracic, thoracolumbar and lumbosacral intervertebral disc disorder; I10 Essential (primary) hypertension; E11.9 Type 2 diabetes mellitus without complications; E78.5 Hyperlipidemia, unspecified; K21.9 Gastro-esophageal reflux disease without esophagitis; G47.33 Obstructive sleep apnea (adult) (pediatric); Z79.899 Other long term (current) drug therapy; Z79.84 Long term (current) use of oral hypoglycemic drugs; Z79.82 Long term (current) use of aspirin; Z88.8 Allergy status to other drugs, medicaments and biological substances; Z87.891 Personal history of nicotine dependence
CPT/HCPCS: 12001; 72110; 90471; 90715; 96372; 99284; J1885

== ENCOUNTER → 2019-02-13 | Outpatient (CLI) | payer OTHER ==
[~2019-02-13] MED LIST changes: +ACET-683 PO; +GABA-843 PO; +GABA-845 PO; +METH4PACK PO; +NAPR-885 PO; +NAPR375T5 PO; +ROBA500T PO
--- NOTE | 2019-02-13 12:11 | REPVR ---
EXAM: MR Lumbar Spine Without Contrast. EXAM DATE/TIME: 02/13/2019 10:54 AM CLINICAL HISTORY: 58 years old, male; Low back pain; Patient HX: Twisted back on 01/21/19 has pain when sitting down; Additional info: Oth intervertebral disc degeneration lumbar reg TECHNIQUE: Imaging protocol: Multiplanar magnetic resonance images of the lumbar spine without intravenous contrast. COMPARISON: CR Spine. Lumbosacral, complete 01/21/2019 4:53 PM FINDINGS: The first sacral vertebral body is partially transitional. Vertebral body heights are intact. Alignment is maintained. No pars defect is identified. The conus is unremarkable in appearance, with its tip at the upper L2 level. There are varying degrees of disc desiccation indicating intervertebral disc degeneration. The visualized abdominal structures appear unremarkable. L2-3: Disc bulge combining with facet arthrosis particularly to very mild right and mild to moderate left neural foraminal narrowing without significant spinal stenosis. L3-4: Small bulge combining with facet arthrosis to lead to mild bilateral neural foraminal narrowing without significant spinal stenosis. L4-5: Diffuse bulge with a central annular tear combining with facet arthrosis and ligamentum flavum hypertrophy to lead to moderate right and mild to moderate left neural foraminal narrowing with mild narrowing of the bilateral lateral recesses and borderline central canal stenosis. There is small fluid in the facet joints. L5-S1: Diffuse bulge with an inferiorly directed left paracentral extrusion which extends up to 4 mm below the level of the disc space. In conjunction with facet arthrosis, there is mild to moderate right and mild left neural foraminal narrowing with mild narrowing of the bilateral lateral recesses, without significant central canal stenosis. There is small fluid in the right facet joint. S1-2: Rudimentary disc without significant displacement. If surgery is considered, recommend level confirmation. IMPRESSION: Multilevel disc desiccation indicating intervertebral disk degeneration with disc displacements as described. Note a transitional lumbosacral vertebral body as above, for which level confirmation is necessary prior to any intervention. Electronically signed by: Foster Pickett On 02/13/2019 12:11:04 PM
== END ==
LOC: M RAD 09:52
PROVIDERS: ATTEND Physician Assistant
DX: M51.36 Other intervertebral disc degeneration, lumbar region (principal); M51.26 Other intervertebral disc displacement, lumbar region

== ENCOUNTER → 2019-03-23 | Outpatient (REF) | payer OTHER ==
[~2019-03-23] MED LIST changes: -ACET-683 PO; -GABA-843 PO; -GABA-845 PO; -METH4PACK PO; -NAPR-885 PO; -NAPR375T5 PO; +OMEP40CA2 PO; -OMEP40CA97 PO
[2019-03-23 12:26] LABS: BASO # 0.1 10^3/uL (0.0-0.2); BASO % 0.6 % (0.0-1.0); EOS # 0.1 10^3/uL (0.0-0.5); EOS % 1.1 % (0.0-3.0); HEMATOCRIT 51.4 % (42.0-52.0); HEMOGLOBIN 17.4 g/dl (13.5-17.5); LYMPH % 24.1 % (24.0-44.0); MEAN CORPUSCULAR HGB CONC 33.9 g/dl (32.0-36.5); MEAN CORPUSCULAR VOLUME 82.6 fl (80.0-96.0); MONO # 0.8 10^3/uL (0.0-0.8); MONO % 9.5 % (0.0-5.0); NEUTROPHILS # 5.3 10^3/uL (1.5-8.5); NEUTROPHILS % 64.2 % (36.0-66.0); PLATELET COUNT, AUTOMATED 180 10^3/uL (150-450); RED BLOOD COUNT 6.22 10^6/uL (4.30-6.10); WHITE BLOOD COUNT 8.2 10^3/uL (4.0-10.0)
[2019-03-23 12:29] LABS: BLOOD UREA NITROGEN 15 MG/DL (7-18); C REACTIVE PROTEIN QUANTITATIV 0.89 MG/DL (0.00-0.30); CREATININE FOR GFR 0.94 MG/DL (0.70-1.30); GLOMERULAR FILTRATION RATE > 60.0 (>56)
[2019-03-23 12:54] LABS: ERYTHROCYTE SEDIMENTATION RATE 2 mm/hr (0-20)
== END ==
LOC: M LABDRAW1 11:44
PROVIDERS: ATTEND Physician Assistant
DX: M51.36 Other intervertebral disc degeneration, lumbar region (principal)

== ENCOUNTER 2019-03-31 07:17 | Emergency (ER) | payer OTHER ==
[~2019-03-31] VITALS: Ht 182.9 cm; Wt 99.1 kg
[~2019-03-31 07:17] MED LIST changes: -OMEP40CA2 PO; +OMEP40CA97 PO
[2019-03-31] MEDS ORDERED: PRED20TA PO (07:51)
[2019-03-31] MEDS ORDERED: NAPR-885 PO (07:51)
[2019-03-31] MEDS ORDERED: CYCL10TA PO (07:51)
[2019-03-31] MEDS ORDERED: ACET-683 PO (07:51)
[2019-03-31] MEDS ORDERED: REPA1TAB4 PO (07:51)
[2019-03-31] MEDS ORDERED: GABA-843 PO (08:10)
[2019-03-31] MEDS ORDERED: KETOROLAC 30 MG/ML VIAL (J1885) IV ONE (08:15)
[2019-03-31] MEDS ORDERED: CYCLOBENZAPRINE 10 MG TAB PO ONE (08:15)
[2019-03-31 08:51] LABS: BASO # 0.1 10^3/uL (0.0-0.2); BASO % 0.9 % (0.0-1.0); EOS # 0.2 10^3/uL (0.0-0.5); EOS % 2.4 % (0.0-3.0); HEMATOCRIT 50.2 % (42.0-52.0); HEMOGLOBIN 17.3 g/dl (13.5-17.5); LYMPH # 2.6 10^3/uL (1.5-5.0); LYMPH % 36.8 % (24.0-44.0); MEAN CORPUSCULAR HEMOGLOBIN 28.4 pg (27.0-33.0); MEAN CORPUSCULAR HGB CONC 34.5 g/dl (32.0-36.5); MEAN CORPUSCULAR VOLUME 82.3 fl (80.0-96.0); MONO # 0.6 10^3/uL (0.0-0.8); MONO % 8.9 % (0.0-5.0); NEUTROPHILS # 3.5 10^3/uL (1.5-8.5); NEUTROPHILS % 49.7 % (36.0-66.0); PLATELET COUNT, AUTOMATED 170 10^3/uL (150-450)
[2019-03-31 09:20] LABS: BLOOD UREA NITROGEN 27 MG/DL (7-18); CALCIUM LEVEL 8.7 MG/DL (8.5-10.1); CARBON DIOXIDE LEVEL 29 MEQ/L (21-32); CHLORIDE LEVEL 102 MEQ/L (98-107); CREATININE FOR GFR 0.93 MG/DL (0.70-1.30); GLOMERULAR FILTRATION RATE > 60.0 (>56); GLUCOSE, FASTING 334 MG/DL (70-100); POTASSIUM SERUM 4.4 MEQ/L (3.5-5.1); SODIUM LEVEL 136 MEQ/L (136-145)
--- NOTE | 2019-03-31 09:34 | REP ---
Left lower extremity deep vein duplex ultrasound: The deep veins demonstrate normal compression, normal Doppler color flow and normal Doppler waveforms with respiration and augmentation from the popliteal vein to the common femoral vein. 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 Impression: There is no left lower extremity deep vein thrombus. Electronically Signed by Mani Baez MD 03/31/2019 09:26 A
[2019-03-31] MEDS ORDERED: NS 1,000 ML IV ONE (10:00)
[2019-03-31] MEDS ORDERED: GABAPENTIN 300 MG CAP PO ONE (10:00)
--- NOTE | 2019-03-31 10:57 | REP ---
CT LUMBAR SPINE WITHOUT CONTRAST: HISTORY: History of recent back injury. New left-sided sciatic type pain. Comparison MRI study lumbar spine February 13, 2019. TECHNIQUE: Helical scanning is acquired and 4 mm axial images are generated. Coronal and sagittal MPR images are generated and reviewed. CT FINDINGS: Lumbar vertebral body heights are preserved. No fracture or collapse is seen. There is prominent bridging osteophyte formation around the left lateral aspect of L2-3 and L1-2 and the right lateral aspect of L1-2. Bridging osteophytes are seen at T11-12 at the upper margin of the imaging field of view as well. A rudimentary disc is noted in the upper sacral spine at S1-S2. There are hypoplastic ribs bilaterally noted at L1. Transitional lumbosacral junction. Labeling corresponds to the scan views February 13, 2019 on MRI. At L5-S1, there is bulging of the posterior disc margin and a central focal disc protrusion is seen with some peripheral calcification. This extends caudally 2-3 mm over the posterior cortex of the S1 body. This is felt to be unchanged from February 13, 2019. There is mild facet hypertrophy at L5-S1 bilaterally also unchanged. At L4-5, there is diffuse disc bulging. There is some calcification of the posterior disc margin. Mild facet hypertrophy and ligamentum flavum hypertrophy are seen. These factors contribute to mild central canal stenosis which is unchanged. No foraminal stenosis is appreciated. At L3-4, there is no evidence of disc protrusion. No central canal stenosis is seen. Facets are unremarkable. Other disc levels are unremarkable. There is no evidence of spondylolysis. IMPRESSION: Degenerative disc disease in the lumbar spine with bridging osteophytes in the upper lumbar levels. There is a left paracentral focal disc protrusion at L5-S1 unchanged. There is borderline canal size to mild central canal stenosis at L4-5 also unchanged. No fracture is seen. Electronically Signed by Glen Pascual MD 03/31/2019 12:58 P
[2019-03-31] MEDS ORDERED: GABA-845 PO (11:25)
[2019-03-31 11:49] VITALS: BP 160/83
--- NOTE | 2019-04-02 08:06 | ED PDOC ---
Post-Departure Follow-Up eric hill faxed formal report of ct ls spine for fu Aditya Scott MD Apr 02, 2019 08:05
== END 2019-03-31 11:53 | disposition home or self-care (01) ==
LOC: M ED 07:17
DX: M54.17 Radiculopathy, lumbosacral region (principal); M54.32 Sciatica, left side; M51.27 Other intervertebral disc displacement, lumbosacral region; M48.061 Spinal stenosis, lumbar region without neurogenic claudication; E11.65 Type 2 diabetes mellitus with hyperglycemia; M25.78 Osteophyte, vertebrae; I10 Essential (primary) hypertension; K21.9 Gastro-esophageal reflux disease without esophagitis; E11.40 Type 2 diabetes mellitus with diabetic neuropathy, unspecified; Z79.82 Long term (current) use of aspirin; Z79.84 Long term (current) use of oral hypoglycemic drugs; Z79.899 Other long term (current) drug therapy; Z88.8 Allergy status to other drugs, medicaments and biological substances
CPT/HCPCS: 36415; 72131; 80048; 85025; 93971; 96361; 96374; 99284; J1885

== ENCOUNTER → 2019-04-02 | Outpatient (CLI) | payer OTHER ==
[~2019-04-02] MED LIST changes: +ACET-683 PO; +GABA-843 PO; +GABA-845 PO; +NAPR-885 PO; +PROHANCE 279.3MG/ML 15ML VIAL (A9576) As Ordered ONE; +PROHANCE 279.3MG/ML 5ML VIAL (A9576) As Ordered ONE
--- NOTE | 2019-04-02 18:20 | REPVR ---
PROCEDURE INFORMATION: Exam: MR Pelvis Without and With Contrast, Musculoskeletal Exam date and time: 04/02/2019 5:56 PM Clinical history: 58 years old, male; Other: Left sciatic pain; Additional info: Sciatica ? neuritis vs mass TECHNIQUE: Imaging protocol: Magnetic resonance images of the pelvis without and with intravenous contrast. Exam focused on the musculoskeletal system. Contrast material: ProHance; Contrast volume: 19 ml; Contrast route: IV; COMPARISON: Pelvis, limited US 12/11/2017 6:01 PM FINDINGS: Appendix: The vermiform appendix is normal. Reproductive: The prostate gland is mildly enlarged measuring 4.8 cm transverse dimension. Bones/joints: Mild asymmetric prominence and increased signal intensity of the LEFT sciatic nerve medially posterior to the LEFT iliac bone at the greater sciatic foramen (series 401, image 24; series 601, image 25). No regional mass or fluid collection identified. No abnormal contrast enhancement. Benign-appearing 18 mm well circumscribed T2 hyperintense lesion RIGHT femoral neck. Anterior bridging LEFT sacroiliac joint marginal osteophytes. Soft tissues: Bilateral inguinal hernias are present containing only intra-abdominal fat. IMPRESSION: 1. Findings consistent with mild focal LEFT sciatic nerve inflammation. 2. Bilateral inguinal hernias. 3. Benign-appearing lesion RIGHT femoral neck. 4. Mild prostatic hypertrophy. Electronically signed by: Aaron Rosa On 04/02/2019 18:19:52 PM
== END ==
LOC: M RAD 16:39
PROVIDERS: ATTEND Physician Assistant
DX: M54.32 Sciatica, left side (principal); K40.20 Bilateral inguinal hernia, without obstruction or gangrene, not specified as recurrent; R93.89 Abnormal findings on diagnostic imaging of other specified body structures; M51.36 Other intervertebral disc degeneration, lumbar region
CPT/HCPCS: 72197; A9576

== ENCOUNTER 2019-05-17 11:55 | Emergency (ER) | payer OTHER ==
[~2019-05-17] VITALS: Ht 182.9 cm; Wt 99.1 kg
[~2019-05-17 11:55] MED LIST changes: -PROHANCE 279.3MG/ML 15ML VIAL (A9576) As Ordered ONE; -PROHANCE 279.3MG/ML 5ML VIAL (A9576) As Ordered ONE
[2019-05-17] MEDS ORDERED: METH4PACK PO (12:16)
[2019-05-17] MEDS ORDERED: MELO15TA28 PO (12:16)
[2019-05-17] MEDS ORDERED: LABETALOL HCL 100 MG/20 ML VIAL IV STA (12:29)
[2019-05-17] MEDS ORDERED: LISINOPRIL 20 MG TAB PO ONE (12:30)
[2019-05-17] MEDS ORDERED: diazePAM 10 MG/2 ML INJ (J3360) IV ONE (12:30)
[2019-05-17] MEDS ORDERED: KETOROLAC 30 MG/ML VIAL (J1885) IV ONE (12:30)
[2019-05-17] MEDS ORDERED: NS 1,000 ML IV ONE (12:45)
[2019-05-17 13:09] LABS: VENOUS BASE EXCESS -1.2 (-2.0-2.0); VENOUS HCO3 24.2 MEQ/L (23.0-27.0); VENOUS O2 SATURATION 96.5 % (60.0-80.0); VENOUS PARTIAL PRESSURE CO2 43.2 mmHg (38.0-50.0); VENOUS PARTIAL PRESSURE O2 80.6 mmHg (30.0-50.0); VENOUS PH 7.367 UNITS (7.330-7.430); VENOUS STANDARD HCO3 23.4 MEQ/L; VENOUS TOTAL CO2 25.6 MEQ/L (24.0-28.0)
[2019-05-17 13:17] VITALS: BP 172/107
[2019-05-17 13:49] LABS: ALBUMIN 4.1 GM/DL (3.2-5.2); ALT/SGPT 58 U/L (12-78); BILIRUBIN,DIRECT 0.1 MG/DL (0.0-0.2); BILIRUBIN,TOTAL 0.7 MG/DL (0.2-1.0); BLOOD UREA NITROGEN 16 MG/DL (7-18); CALCIUM LEVEL 9.5 MG/DL (8.5-10.1); CARBON DIOXIDE LEVEL 29 MEQ/L (21-32); CHLORIDE LEVEL 102 MEQ/L (98-107); CREATININE FOR GFR 1.17 MG/DL (0.70-1.30); GLOMERULAR FILTRATION RATE > 60.0 (>56); GLUCOSE, FASTING 531 MG/DL (70-100); POTASSIUM SERUM 4.2 MEQ/L (3.5-5.1); SODIUM LEVEL 137 MEQ/L (136-145); TOTAL PROTEIN 7.6 GM/DL (6.4-8.2)
[2019-05-17] MEDS ORDERED: HumuLIN R (REGULAR) INSULIN (NovoLIN R) **100U/ML** PER UNIT IV ONE (14:00)
[2019-05-17 14:20] VITALS: BP 144/66
[2019-05-17] MEDS ORDERED: LISI-542 PO (15:04)
[2019-05-17] MEDS ORDERED: NAPR375T5 PO (15:04)
[2019-05-17] MEDS ORDERED: GABA-845 PO (15:04)
[2019-05-17] MEDS ORDERED: SPIR-10 PO (15:04)
[2019-05-17] MEDS ORDERED: CYCL10TA PO (15:14)
== END 2019-05-17 15:26 | disposition home or self-care (01) ==
LOC: M ED 11:55
DX: I10 Essential (primary) hypertension (principal); E11.9 Type 2 diabetes mellitus without complications; M54.41 Lumbago with sciatica, right side; K21.9 Gastro-esophageal reflux disease without esophagitis; Z79.899 Other long term (current) drug therapy; Z79.84 Long term (current) use of oral hypoglycemic drugs; Z79.82 Long term (current) use of aspirin; Z88.8 Allergy status to other drugs, medicaments and biological substances
CPT/HCPCS: 80048; 80076; 82803; 96361; 96374; 96375; 99284; J1885; J3360

== ENCOUNTER → 2019-05-25 | Outpatient (REF) | payer OTHER ==
[~2019-05-25] MED LIST changes: +METH4PACK PO; +NAPR375T5 PO
[2019-05-25 12:43] LABS: BASO # 0.1 10^3/uL (0.0-0.2); BASO % 0.8 % (0.0-1.0); EOS # 0.1 10^3/uL (0.0-0.5); EOS % 1.6 % (0.0-3.0); HEMOGLOBIN 17.8 g/dl (13.5-17.5); LYMPH # 1.7 10^3/uL (1.5-5.0); LYMPH % 27.9 % (24.0-44.0); MEAN CORPUSCULAR HEMOGLOBIN 28.5 pg (27.0-33.0); MEAN CORPUSCULAR HGB CONC 34.2 g/dl (32.0-36.5); MEAN CORPUSCULAR VOLUME 83.2 fl (80.0-96.0); MONO # 0.6 10^3/uL (0.0-0.8); MONO % 9.3 % (0.0-5.0); NEUTROPHILS # 3.7 10^3/uL (1.5-8.5); NEUTROPHILS % 59.9 % (36.0-66.0); PLATELET COUNT, AUTOMATED 178 10^3/uL (150-450); RED BLOOD COUNT 6.25 10^6/uL (4.30-6.10); WHITE BLOOD COUNT 6.2 10^3/uL (4.0-10.0)
[2019-05-25 13:00] LABS: ALT/SGPT 60 U/L (12-78); BLOOD UREA NITROGEN 20 MG/DL (7-18); CALCIUM LEVEL 9.1 MG/DL (8.5-10.1); CARBON DIOXIDE LEVEL 33 MEQ/L (21-32); CHLORIDE LEVEL 104 MEQ/L (98-107); CHOLESTEROL LEVEL 171 MG/DL (<200); CHOLESTEROL RISK RATIO 4.885 (<5); CREATININE FOR GFR 0.92 MG/DL (0.70-1.30); GLOMERULAR FILTRATION RATE > 60.0 (>56); GLUCOSE, FASTING 261 MG/DL (70-100); HDL CHOLESTEROL 35 MG/DL (>40); LDL CHOLESTEROL 98 MG/DL (<100); NON-HDL-C 136 MG/DL; POTASSIUM SERUM 4.5 MEQ/L (3.5-5.1); SODIUM LEVEL 140 MEQ/L (136-145); TOTAL PROTEIN 7.2 GM/DL (6.4-8.2); TRIGLYCERIDES LEVEL 190 MG/DL (<150)
[2019-05-25 14:07] LABS: HEMOGLOBIN A1c 9.2 %
== END ==
LOC: M SFHCADAM 09:19
PROVIDERS: ATTEND Physician Assistant Medical
DX: E11.65 Type 2 diabetes mellitus with hyperglycemia (principal); I10 Essential (primary) hypertension; E55.9 Vitamin D deficiency, unspecified

== ENCOUNTER → 2019-11-17 | Outpatient (REF) | payer OTHER ==
[~2019-11-17] MED LIST changes: +CYCL-707 PO; -CYCL10TA PO
[2019-11-17 16:28] LABS: MALB URINE SIEMENS 58.2 MG/L; MAU/CREAT RATIO 37.7 MCG/MG (0.0-30.0)
== END ==
LOC: M LAB REF 14:54
PROVIDERS: ATTEND Nurse Practitioner Family
DX: E11.65 Type 2 diabetes mellitus with hyperglycemia (principal)

== ENCOUNTER → 2020-03-07 | Outpatient (CLI) | payer OTHER ==
[~2020-03-07] MED LIST changes: -ASPI81TA85 PO; +ASPI81TA86 PO
[2020-03-07 08:58] LABS: HEMATOCRIT 50.4 % (42.0-52.0); HEMOGLOBIN 16.8 g/dl (13.5-17.5); MEAN CORPUSCULAR HEMOGLOBIN 28.3 pg (27.0-33.0); MEAN CORPUSCULAR HGB CONC 33.3 g/dl (32.0-36.5); MEAN CORPUSCULAR VOLUME 84.8 fl (80.0-96.0); PLATELET COUNT, AUTOMATED 148 10^3/uL (150-450); RED BLOOD COUNT 5.94 10^6/uL (4.30-6.10); WHITE BLOOD COUNT 5.5 10^3/uL (4.0-10.0)
[2020-03-07 09:30] LABS: ALBUMIN 3.7 GM/DL (3.2-5.2); ALT/SGPT 48 U/L (12-78); BILIRUBIN,TOTAL 0.8 MG/DL (0.2-1.0); BLOOD UREA NITROGEN 21 MG/DL (7-18); CALCIUM LEVEL 8.9 MG/DL (8.5-10.1); CARBON DIOXIDE LEVEL 29 MEQ/L (21-32); CHLORIDE LEVEL 108 MEQ/L (98-107); CHOLESTEROL LEVEL 115 MG/DL (<200); CHOLESTEROL RISK RATIO 3.382 (<5); CREATININE FOR GFR 0.86 MG/DL (0.70-1.30); GLOMERULAR FILTRATION RATE > 60.0 (>56); GLUCOSE, FASTING 118 MG/DL (70-100); HDL CHOLESTEROL 34 MG/DL (>40); LDL CHOLESTEROL 68 MG/DL (<100); NON-HDL-C 81 MG/DL; POTASSIUM SERUM 3.9 MEQ/L (3.5-5.1); SODIUM LEVEL 142 MEQ/L (136-145); TOTAL PROTEIN 7.1 GM/DL (6.4-8.2); TRIGLYCERIDES LEVEL 63 MG/DL (<150)
[2020-03-07 09:31] LABS: MALB URINE SIEMENS 44.4 MG/L
[2020-03-07 10:57] LABS: HEMOGLOBIN A1c 5.7 %
== END ==
LOC: M LAB 07:48
PROVIDERS: ATTEND Physician Assistant Medical
DX: E11.9 Type 2 diabetes mellitus without complications (principal); I10 Essential (primary) hypertension

== ENCOUNTER → 2020-06-04 | Outpatient (CLI) | payer SELFPAY | LOC: M LABSMTC 10:23 | PROVIDERS: ATTEND Pediatrics | DX: Z20.828 Contact with and (suspected) exposure to other viral communicable diseases (principal) ==

== ENCOUNTER → 2020-09-12 | Outpatient (REF) | payer OTHER ==
[~2020-09-12] MED LIST changes: +GABA-282 PO; -GABA-843 PO; -LISI-542 PO; +LISI-898 PO; +LISI10TA22 PO; -LISI10TA4 PO
[2020-09-12 12:54] LABS: BASO # 0.1 10^3/uL (0.0-0.2); BASO % 0.9 % (0.0-1.0); EOS # 0.1 10^3/uL (0.0-0.5); EOS % 1.7 % (0.0-3.0); HEMATOCRIT 54.1 % (42.0-52.0); HEMOGLOBIN 17.9 g/dl (13.5-17.5); LYMPH % 24.3 % (24.0-44.0); MEAN CORPUSCULAR HGB CONC 33.1 g/dl (32.0-36.5); MEAN CORPUSCULAR VOLUME 84.5 fl (80.0-96.0); MONO # 0.9 10^3/uL (0.0-0.8); MONO % 10.5 % (2.0-8.0); NEUTROPHILS % 62.2 % (36.0-66.0); PLATELET COUNT, AUTOMATED 179 10^3/uL (150-450); WHITE BLOOD COUNT 8.1 10^3/uL (4.0-10.0)
[2020-09-12 13:38] LABS: ALBUMIN 4.3 GM/DL (3.2-5.2); ALT/SGPT 66 U/L (12-78); BILIRUBIN,TOTAL 0.7 MG/DL (0.2-1.0); BLOOD UREA NITROGEN 21 MG/DL (7-18); CALCIUM LEVEL 9.5 MG/DL (8.5-10.1); CARBON DIOXIDE LEVEL 32 MEQ/L (21-32); CHLORIDE LEVEL 106 MEQ/L (98-107); CHOLESTEROL LEVEL 130 MG/DL (<200); CHOLESTEROL RISK RATIO 3.823 (<5); CREATININE FOR GFR 0.95 MG/DL (0.70-1.30); GLOMERULAR FILTRATION RATE > 60.0 (>56); GLUCOSE, FASTING 211 MG/DL (70-100); HDL CHOLESTEROL 34 MG/DL (>40); LDL CHOLESTEROL 64 MG/DL (<100); NON-HDL-C 96 MG/DL; POTASSIUM SERUM 4.5 MEQ/L (3.5-5.1); SODIUM LEVEL 142 MEQ/L (136-145); TOTAL 25(OH) VITAMIN D 25.6 NG/ML (30.0-100.0); TOTAL PROTEIN 7.8 GM/DL (6.4-8.2); TRIGLYCERIDES LEVEL 159 MG/DL (<150)
[2020-09-12 13:43] LABS: CREATININE, URINE 53.6 MG/DL; MALB URINE SIEMENS 21.4 MG/L; MAU/CREAT RATIO 39.9 MCG/MG (0.0-30.0)
== END ==
LOC: M SFHCADAM 08:10
PROVIDERS: ATTEND Physician Assistant Medical
DX: E55.9 Vitamin D deficiency, unspecified (principal); E11.65 Type 2 diabetes mellitus with hyperglycemia; G47.33 Obstructive sleep apnea (adult) (pediatric); I11.0 Hypertensive heart disease with heart failure; K21.9 Gastro-esophageal reflux disease without esophagitis

== ENCOUNTER → 2021-03-08 | Outpatient (REF) | payer OTHER ==
[~2021-03-08] MED LIST changes: +GABA-283 PO; -GABA-845 PO; +OMEP40CA4 PO; -OMEP40CA97 PO
[2021-03-08 19:52] LABS: CREATININE, URINE 54.2 MG/DL; MALB URINE SIEMENS 23.8 MG/L; MAU/CREAT RATIO 43.9 MCG/MG (0.0-30.0)
== END ==
LOC: M LAB REF 17:25
PROVIDERS: ATTEND Nurse Practitioner Family
DX: E11.65 Type 2 diabetes mellitus with hyperglycemia (principal)

== ENCOUNTER → 2021-03-27 | Outpatient (CLI) | payer OTHER ==
[2021-03-27 10:47] LABS: HEMOGLOBIN A1c 6.9 %
[2021-03-27 13:17] LABS: ALBUMIN 3.9 GM/DL (3.2-5.2); ALT/SGPT 49 U/L (12-78); BILIRUBIN,TOTAL 0.9 MG/DL (0.2-1.0); BLOOD UREA NITROGEN 15 MG/DL (7-18); CALCIUM LEVEL 9.7 MG/DL (8.5-10.1); CARBON DIOXIDE LEVEL 30 MEQ/L (21-32); CHLORIDE LEVEL 105 MEQ/L (98-107); CREATININE FOR GFR 0.86 MG/DL (0.70-1.30); GLOMERULAR FILTRATION RATE > 60.0 (>56); GLUCOSE, FASTING 203 MG/DL (70-100); POTASSIUM SERUM 4.1 MEQ/L (3.5-5.1); SODIUM LEVEL 139 MEQ/L (136-145); TOTAL 25(OH) VITAMIN D 27.5 NG/ML (30.0-100.0); TOTAL PROTEIN 7.5 GM/DL (6.4-8.2)
== END ==
LOC: M LAB 09:08
PROVIDERS: ATTEND Physician Assistant Medical
DX: E55.9 Vitamin D deficiency, unspecified (principal)

== ENCOUNTER → 2021-11-15 | Outpatient (REF) | payer OTHER ==
[~2021-11-15] MED LIST changes: -LISI-898 PO; +LISI5TAB11 PO; +LOSA50TA28 PO; -LOSA50TA88 PO
[2021-11-15 12:56] LABS: BASO % 0.6 % (0.0-1.0); EOS # 0.1 10^3/uL (0.0-0.5); EOS % 1.2 % (0.0-3.0); HEMATOCRIT 50.2 % (42.0-52.0); HEMOGLOBIN 16.3 g/dl (13.5-17.5); LYMPH # 1.7 10^3/uL (1.5-5.0); LYMPH % 25.1 % (24.0-44.0); MEAN CORPUSCULAR HEMOGLOBIN 27.9 pg (27.0-33.0); MEAN CORPUSCULAR HGB CONC 32.5 g/dl (32.0-36.5); MONO # 0.7 10^3/uL (0.0-0.8); MONO % 9.6 % (2.0-8.0); NEUTROPHILS # 4.3 10^3/uL (1.5-8.5); NEUTROPHILS % 63.1 % (36.0-66.0); PLATELET COUNT, AUTOMATED 170 10^3/uL (150-450); RED BLOOD COUNT 5.84 10^6/uL (4.30-6.10); WHITE BLOOD COUNT 6.9 10^3/uL (4.0-10.0)
[2021-11-15 13:47] LABS: ALBUMIN 3.9 GM/DL (3.2-5.2); ALT/SGPT 47 U/L (12-78); BLOOD UREA NITROGEN 20 MG/DL (7-18); CALCIUM LEVEL 8.8 MG/DL (8.8-10.2); CARBON DIOXIDE LEVEL 28 MEQ/L (21-32); CHLORIDE LEVEL 108 MEQ/L (98-107); CHOLESTEROL LEVEL 113 MG/DL (<200); CHOLESTEROL RISK RATIO 3.323 (<5); CREATININE FOR GFR 0.87 MG/DL (0.70-1.30); GLOMERULAR FILTRATION RATE > 60.0 (>49); GLUCOSE, FASTING 131 MG/DL (70-100); HDL CHOLESTEROL 34 MG/DL (>40); LDL CHOLESTEROL 61 MG/DL (<100); NON-HDL-C 79 MG/DL; POTASSIUM SERUM 4.1 MEQ/L (3.5-5.1); SODIUM LEVEL 141 MEQ/L (136-145); TOTAL 25(OH) VITAMIN D 33.2 NG/ML (30.0-100.0); TOTAL PROTEIN 7.1 GM/DL (6.4-8.2); TRIGLYCERIDES LEVEL 91 MG/DL (<150)
[2021-11-15 14:12] LABS: HEMOGLOBIN A1c 9.1 %
== END ==
LOC: M SFHCADAM 08:13
PROVIDERS: ATTEND Physician Assistant Medical
DX: E11.65 Type 2 diabetes mellitus with hyperglycemia (principal); I11.0 Hypertensive heart disease with heart failure; I50.32 Chronic diastolic (congestive) heart failure; E55.9 Vitamin D deficiency, unspecified

== ENCOUNTER → 2021-12-06 | Outpatient (CLI) | payer OTHER ==
[~2021-12-06] MED LIST changes: +ASPI81CH33 PO; +ATOR40TA75 PO; +BASA100I SQ; +D3 H10002 PO; +STEG15TA PO
== END ==
LOC: M LABSMTC 09:25
PROVIDERS: ATTEND Anesthesiology
DX: Z01.818 Encounter for other preprocedural examination (principal); Z11.52 Encounter for screening for COVID-19

== ENCOUNTER 2021-12-11 06:46 | Day surgery (SDC) | payer OTHER ==
[~2021-12-11] VITALS: Ht 182.9 cm; Wt 89.1 kg
[~2021-12-11 06:46] MED LIST changes: +NS 1,000 ML IV ONE
[2021-12-11] MEDS ORDERED: fentaNYL 100 MCG/2 ML INJECTION As Ordered ONE (06:51)
[2021-12-11] MEDS ORDERED: propofoL 500 MG/50 ML VIAL As Ordered ONE (06:51)
[2021-12-11] MEDS ORDERED: LIDOCAINE 2% 100MG/5ML SDV (FOR ANES.) As Ordered ONE (06:51)
[2021-12-11 08:10] VITALS: BP 131/81
== END 2021-12-11 08:24 | disposition home or self-care (01) ==
LOC: M OPP 06:46
PROVIDERS: ATTEND Internal Medicine Gastroenterology
DX: Z12.11 Encounter for screening for malignant neoplasm of colon (principal); K22.70 Barrett's esophagus without dysplasia; R12 Heartburn; D13.1 Benign neoplasm of stomach; K22.89 Other specified disease of esophagus; I25.10 Atherosclerotic heart disease of native coronary artery without angina pectoris; I10 Essential (primary) hypertension; E78.5 Hyperlipidemia, unspecified; E11.9 Type 2 diabetes mellitus without complications; K21.9 Gastro-esophageal reflux disease without esophagitis; M19.90 Unspecified osteoarthritis, unspecified site; G47.30 Sleep apnea, unspecified; Z87.891 Personal history of nicotine dependence; Z88.8 Allergy status to other drugs, medicaments and biological substances; Z79.4 Long term (current) use of insulin; Z79.82 Long term (current) use of aspirin; Z79.899 Other long term (current) drug therapy; Z82.49 Family history of ischemic heart disease and other diseases of the circulatory system; Z80.49 Family history of malignant neoplasm of other genital organs
CPT/HCPCS: 43239; 45378; 88305; J3010

== ENCOUNTER → 2022-01-13 | Outpatient (CLI) | payer OTHER ==
[~2022-01-13] MED LIST changes: -NS 1,000 ML IV ONE
== END ==
LOC: M LABSMTC 10:50
PROVIDERS: ATTEND Anesthesiology
DX: Z01.812 Encounter for preprocedural laboratory examination (principal); Z20.822 Contact with and (suspected) exposure to COVID-19

== ENCOUNTER 2022-01-18 07:23 | Day surgery (SDC) | payer OTHER ==
[~2022-01-18] VITALS: Ht 182.9 cm; Wt 89.4 kg
[~2022-01-18 07:23] MED LIST changes: +NS 1,000 ML IV ONE
[2022-01-18] MEDS ORDERED: LIDOCAINE 2% 100MG/5ML SDV (FOR ANES.) As Ordered ONE (08:42)
[2022-01-18] MEDS ORDERED: propofoL 200 MG/20 ML VIAL As Ordered ONE ×2 (08:42→08:59)
[2022-01-18 09:22] VITALS: BP 131/74
== END 2022-01-18 09:23 | disposition home or self-care (01) ==
LOC: M OPP 07:23
PROVIDERS: ATTEND Internal Medicine Gastroenterology
DX: Z12.11 Encounter for screening for malignant neoplasm of colon (principal); K63.5 Polyp of colon; K29.70 Gastritis, unspecified, without bleeding; I10 Essential (primary) hypertension; E11.9 Type 2 diabetes mellitus without complications; E78.00 Pure hypercholesterolemia, unspecified; G47.30 Sleep apnea, unspecified; Z79.02 Long term (current) use of antithrombotics/antiplatelets; Z79.4 Long term (current) use of insulin; Z79.82 Long term (current) use of aspirin; Z79.899 Other long term (current) drug therapy; Z99.89 Dependence on other enabling machines and devices

== ENCOUNTER → 2022-05-20 | Outpatient (REF) | payer OTHER ==
[~2022-05-20] MED LIST changes: -NS 1,000 ML IV ONE
[2022-05-20 15:58] LABS: CHLORIDE LEVEL 103 MMOL/L (98-107); SODIUM LEVEL 142 MMOL/L (136-145)
[2022-05-20 15:59] LABS: ALBUMIN 4.1 G/DL (3.2-5.2); CARBON DIOXIDE LEVEL 30 MMOL/L (20-31)
[2022-05-20 16:04] LABS: BLOOD UREA NITROGEN 17 MG/DL (9-23); CALCIUM LEVEL 9.1 MG/DL (8.3-10.6); GLUCOSE, FASTING 233 MG/DL (74-106); HDL CHOLESTEROL 33.8 MG/DL (>40); TRIGLYCERIDES LEVEL 149 MG/DL (<150)
[2022-05-20 16:05] LABS: ALKALINE PHOSPHATASE 86 U/L (46-116)
[2022-05-20 16:06] LABS: ALT/SGPT 46 U/L (7.0-40); AST/SGOT 22 U/L (<34); TOTAL PROTEIN 7.3 G/DL (5.7-8.2)
[2022-05-20 16:07] LABS: CHOLESTEROL LEVEL 141 MG/DL (<200); CHOLESTEROL RISK RATIO 4.17 (<5); LDL CHOLESTEROL 77.4 MG/DL (<100); NON-HDL-C 107 MG/DL; TOTAL 25(OH) VITAMIN D 27.1 NG/ML (20.0-100.0)
[2022-05-20 16:20] LABS: CREATININE FOR GFR 0.68 MG/DL (0.70-1.30); GLOMERULAR FILTRATION RATE > 60.0 (>49); POTASSIUM SERUM 4.2 MMOL/L (3.5-5.1)
[2022-05-20 19:57] LABS: HEMOGLOBIN A1c 8.2 % (4.0-6.0)
== END ==
LOC: M SFHCADAM 09:50
PROVIDERS: ATTEND Physician Assistant Medical
DX: E11.65 Type 2 diabetes mellitus with hyperglycemia (principal); I11.0 Hypertensive heart disease with heart failure; I50.32 Chronic diastolic (congestive) heart failure; E55.9 Vitamin D deficiency, unspecified

== ENCOUNTER → 2022-06-25 | Outpatient (REF) | payer OTHER ==
[2022-06-25 18:33] LABS: CREATININE, URINE 48.6 MG/DL; MAU/CREAT RATIO 98.7 MCG/MG (0.0-30.0)
== END ==
LOC: M LAB REF 17:05
PROVIDERS: ATTEND Nurse Practitioner Family
DX: E11.65 Type 2 diabetes mellitus with hyperglycemia (principal)

== ENCOUNTER → 2022-11-07 | Outpatient (CLI) | payer OTHER | LOC: M RAD 07:35 | PROVIDERS: ATTEND Nurse Practitioner Family | DX: M54.12 Radiculopathy, cervical region (principal); M99.71 Connective tissue and disc stenosis of intervertebral foramina of cervical region ==

== ENCOUNTER → 2023-04-01 | Outpatient (REF) | payer OTHER ==
[~2023-04-01] MED LIST changes: -GABA-283 PO; +GABA-284 PO
[2023-04-01 14:18] LABS: BASO # 0.1 10^3/uL (0.0-0.2); BASO % 0.7 % (0.0-1.0); EOS # 0.1 10^3/uL (0.0-0.5); EOS % 1.3 % (0.0-3.0); HEMATOCRIT 54.4 % (42.0-52.0); HEMOGLOBIN 17.9 g/dl (13.5-17.5); LYMPH # 1.8 10^3/uL (1.5-5.0); LYMPH % 23.5 % (24.0-44.0); MEAN CORPUSCULAR HEMOGLOBIN 27.9 pg (27.0-33.0); MEAN CORPUSCULAR HGB CONC 32.9 g/dl (32.0-36.5); MEAN CORPUSCULAR VOLUME 84.9 fl (80.0-96.0); MONO # 0.6 10^3/uL (0.0-0.8); MONO % 7.9 % (2.0-8.0); NEUTROPHILS # 4.9 10^3/uL (1.5-8.5); NEUTROPHILS % 66.3 % (36.0-66.0); PLATELET COUNT, AUTOMATED 203 10^3/uL (150-450); RED BLOOD COUNT 6.41 10^6/uL (4.30-6.10); WHITE BLOOD COUNT 7.5 10^3/uL (4.0-10.0)
[2023-04-01 14:43] LABS: ERYTHROCYTE SEDIMENTATION RATE 13 mm/hr (0-20)
[2023-04-02 23:10] LABS: ANA (HEP2) Negative (.)
== END ==
LOC: M SFHCADAM 10:12
PROVIDERS: ATTEND Physician Assistant Medical
DX: M51.36 Other intervertebral disc degeneration, lumbar region (principal); R42 Dizziness and giddiness; M79.10 Myalgia, unspecified site

== ENCOUNTER → 2023-04-22 | Outpatient (CLI) | payer OTHER | LOC: M PLAIMG 10:59 | PROVIDERS: ATTEND Physician Assistant Medical | DX: R42 Dizziness and giddiness (principal) ==

== ENCOUNTER → 2023-07-23 | Outpatient (REF) | payer OTHER ==
[2023-07-23 16:27] LABS: BASO % 0.5 % (0.0-1.0); EOS # 0.1 10^3/uL (0.0-0.5); EOS % 1.2 % (0.0-3.0); HEMATOCRIT 52.8 % (42.0-52.0); LYMPH # 2.1 10^3/uL (1.5-5.0); LYMPH % 23.9 % (24.0-44.0); MEAN CORPUSCULAR HEMOGLOBIN 28.5 pg (27.0-33.0); MEAN CORPUSCULAR HGB CONC 34.1 g/dl (32.0-36.5); MEAN CORPUSCULAR VOLUME 83.7 fl (80.0-96.0); MONO # 0.7 10^3/uL (0.0-0.8); MONO % 7.8 % (2.0-8.0); NEUTROPHILS # 5.7 10^3/uL (1.5-8.5); NEUTROPHILS % 66.4 % (36.0-66.0); PLATELET COUNT, AUTOMATED 197 10^3/uL (150-450); RED BLOOD COUNT 6.31 10^6/uL (4.30-6.10); WHITE BLOOD COUNT 8.6 10^3/uL (4.0-10.0)
[2023-07-23 16:47] LABS: HEMOGLOBIN A1c 7.5 % (4.0-6.0)
[2023-07-23 16:48] LABS: ALBUMIN 4.1 G/DL (3.2-5.2); ALKALINE PHOSPHATASE 94 U/L (46-116); ALT/SGPT 38 U/L (7.0-40); AST/SGOT 12 U/L (<34); BILIRUBIN,TOTAL 0.6 MG/DL (0.3-1.2); BLOOD UREA NITROGEN 17 MG/DL (9-23); CALCIUM LEVEL 9.4 MG/DL (8.3-10.6); CARBON DIOXIDE LEVEL 30 MMOL/L (20-31); CHLORIDE LEVEL 102 MMOL/L (98-107); CHOLESTEROL LEVEL 148 MG/DL (<200); CHOLESTEROL RISK RATIO 4.51 (<5); CREATININE FOR GFR 0.78 MG/DL (0.70-1.30); GLOMERULAR FILTRATION RATE > 60.0 (>49); GLUCOSE, FASTING 327 MG/DL (74-106); HDL CHOLESTEROL 32.8 MG/DL (>40); NON-HDL-C 115.2 MG/DL; POTASSIUM SERUM 3.8 MMOL/L (3.5-5.1); SODIUM LEVEL 139 MMOL/L (136-145); TOTAL PROTEIN 7.5 G/DL (5.7-8.2); TRIGLYCERIDES LEVEL 492 MG/DL (<150)
[2023-07-23 16:49] LABS: THYROID STIMULATING HORMONE 1.967 uIU/ML (0.55-4.78); TOTAL 25(OH) VITAMIN D 27.9 NG/ML (20.0-100.0)
== END ==
LOC: M SFHCADAM 15:12
PROVIDERS: ATTEND Physician Assistant Medical
DX: E11.65 Type 2 diabetes mellitus with hyperglycemia (principal); K75.81 Nonalcoholic steatohepatitis (NASH); I11.0 Hypertensive heart disease with heart failure; I50.32 Chronic diastolic (congestive) heart failure; E55.9 Vitamin D deficiency, unspecified

== ENCOUNTER → 2023-10-27 | Outpatient (REF) | payer OTHER ==
[2023-10-27 17:27] LABS: ALBUMIN 4.1 G/DL (3.2-5.2); ALKALINE PHOSPHATASE 83 U/L (46-116); ALT/SGPT 48 U/L (7.0-40); AST/SGOT 21 U/L (<34); BILIRUBIN,TOTAL 0.7 MG/DL (0.3-1.2); BLOOD UREA NITROGEN 19 MG/DL (9-23); CALCIUM LEVEL 9.5 MG/DL (8.3-10.6); CARBON DIOXIDE LEVEL 30 MMOL/L (20-31); CHLORIDE LEVEL 106 MMOL/L (98-107); CREATININE FOR GFR 0.94 MG/DL (0.70-1.30); GLOMERULAR FILTRATION RATE > 60.0 (>49); GLUCOSE, FASTING 244 MG/DL (74-106); POTASSIUM SERUM 4.7 MMOL/L (3.5-5.1); SODIUM LEVEL 141 MMOL/L (136-145); TOTAL PROTEIN 7.1 G/DL (5.7-8.2)
[2023-10-27 17:36] LABS: INR 1.09; PROTHROMBIN TIME 13.8 SECONDS (12.5-14.5)
[2023-10-27 17:37] LABS: BASO % 0.6 % (0.0-1.0); EOS # 0.1 10^3/uL (0.0-0.5); EOS % 1.3 % (0.0-3.0); HEMATOCRIT 50.4 % (42.0-52.0); HEMOGLOBIN 16.9 g/dl (13.5-17.5); LYMPH # 1.7 10^3/uL (1.5-5.0); LYMPH % 23.6 % (24.0-44.0); MEAN CORPUSCULAR HEMOGLOBIN 28.7 pg (27.0-33.0); MEAN CORPUSCULAR HGB CONC 33.5 g/dl (32.0-36.5); MEAN CORPUSCULAR VOLUME 85.6 fl (80.0-96.0); MONO # 0.7 10^3/uL (0.0-0.8); MONO % 9.3 % (2.0-8.0); NEUTROPHILS # 4.6 10^3/uL (1.5-8.5); NEUTROPHILS % 64.8 % (36.0-66.0); PLATELET COUNT, AUTOMATED 196 10^3/uL (150-450); RED BLOOD COUNT 5.89 10^6/uL (4.30-6.10); WHITE BLOOD COUNT 7.1 10^3/uL (4.0-10.0)
[2023-10-27 17:47] LABS: HEMOGLOBIN A1c 8.7 % (4.0-6.0)
== END ==
LOC: M SFHCADAM 14:36
PROVIDERS: ATTEND Physician Assistant Medical
DX: M50.30 Other cervical disc degeneration, unspecified cervical region (principal)

== ENCOUNTER → 2024-02-02 | Outpatient (CLI) | payer OTHER | LOC: M LAB 09:16 | PROVIDERS: ATTEND Urology | DX: Z12.5 Encounter for screening for malignant neoplasm of prostate (principal) ==

== ENCOUNTER → 2024-02-02 | Outpatient (REF) | payer OTHER | LOC: M LABSMT 08:27 | PROVIDERS: ATTEND Urology | DX: Z12.5 Encounter for screening for malignant neoplasm of prostate (principal) ==

== ENCOUNTER → 2024-04-13 | Outpatient (CLI) | payer OTHER ==
[~2024-04-13] MED LIST changes: +BARIUM SULFATE 700 MG TABLET (E-Z-DISK) As Ordered ONE; +E-Z-PAQUE 96% w/w SUSP 176GM BTL As Ordered ONE; +GABA-1172 PO; -GABA-282 PO; +NAPR-1450 PO; -NAPR375T5 PO; +VARIBAR NECTAR 40% w/v 240ML SUSP BTL As Ordered ONE; +VARIBAR PUDDING 40% w/v 230ML TUBE As Ordered ONE
== END ==
LOC: M RAD 12:43
PROVIDERS: ATTEND Physician Assistant Medical
DX: R13.10 Dysphagia, unspecified (principal)

== ENCOUNTER → 2024-04-20 | Outpatient (CLI) | payer OTHER ==
[~2024-04-20] MED LIST changes: -BARIUM SULFATE 700 MG TABLET (E-Z-DISK) As Ordered ONE; +E-Z-GAS II EFFERVESCENT PACKET (SODIUM BICARB./CITRIC ACID/SIMETHICONE) As Ordered ONE; +E-Z-HD 98% w/w 340GM SUSP BTL As Ordered ONE; -VARIBAR NECTAR 40% w/v 240ML SUSP BTL As Ordered ONE; -VARIBAR PUDDING 40% w/v 230ML TUBE As Ordered ONE
== END ==
LOC: M RAD 09:10
PROVIDERS: ATTEND Physician Assistant Medical
DX: R13.10 Dysphagia, unspecified (principal)

== ENCOUNTER 2024-05-25 12:12 | Day surgery (SDC) | payer OTHER ==
[~2024-05-25] VITALS: Ht 182.9 cm; Wt 553.4 kg
[~2024-05-25 12:12] MED LIST changes: -E-Z-GAS II EFFERVESCENT PACKET (SODIUM BICARB./CITRIC ACID/SIMETHICONE) As Ordered ONE; -E-Z-HD 98% w/w 340GM SUSP BTL As Ordered ONE; -E-Z-PAQUE 96% w/w SUSP 176GM BTL As Ordered ONE; +FLOM0.4C39 PO; +JANU100T PO; +JARD1TAB PO; +LANTINJ4 SC
[2024-05-25] MEDS ORDERED: fentaNYL 100 MCG/2 ML INJECTION As Ordered ONE (15:21)
[2024-05-25 15:50] VITALS: TEMP 97.6
[2024-05-25 16:00] VITALS: BP 139/83; O2SAT 97
== END 2024-05-25 16:03 | disposition home or self-care (01) ==
LOC: M OPP 12:12
PROVIDERS: ATTEND Internal Medicine Gastroenterology
DX: Z12.89 Encounter for screening for malignant neoplasm of other sites (principal); K21.00 Gastro-esophageal reflux disease with esophagitis, without bleeding; K29.80 Duodenitis without bleeding; K22.89 Other specified disease of esophagus; E11.9 Type 2 diabetes mellitus without complications; I10 Essential (primary) hypertension; E78.00 Pure hypercholesterolemia, unspecified; G47.30 Sleep apnea, unspecified; N40.0 Benign prostatic hyperplasia without lower urinary tract symptoms; Z79.899 Other long term (current) drug therapy; Z79.84 Long term (current) use of oral hypoglycemic drugs; Z79.4 Long term (current) use of insulin; Z88.8 Allergy status to other drugs, medicaments and biological substances
CPT/HCPCS: 43239; 88305; J3010

== ENCOUNTER 2024-06-19 12:52 | Emergency (ER) | payer OTHER ==
[~2024-06-19] VITALS: Ht 182.9 cm; Wt 92.3 kg
[2024-06-19 12:55] VITALS: TEMP 97.8
[2024-06-19] MEDS: KETOROLAC 60MG 2ML VIAL IM ONE (16:54)
[2024-06-19] MEDS: methocarbamoL 500 MG TAB PO ONE (16:54)
[2024-06-19] MEDS: ACETAMINOPHEN 500 MG TAB PO ONE (16:55)
[2024-06-19 17:40] VITALS: BP 170/92; O2SAT 97
[2024-06-19] MEDS ORDERED: PRED20TA PO (21:44)
[2024-06-19] MEDS ORDERED: METH-1164 PO (21:44)
== END 2024-06-19 21:57 | disposition home or self-care (01) ==
LOC: M ED 12:52
DX: M51.26 Other intervertebral disc displacement, lumbar region (principal); M48.061 Spinal stenosis, lumbar region without neurogenic claudication; M51.27 Other intervertebral disc displacement, lumbosacral region; M48.07 Spinal stenosis, lumbosacral region; R19.7 Diarrhea, unspecified; E11.9 Type 2 diabetes mellitus without complications; I10 Essential (primary) hypertension; Z79.899 Other long term (current) drug therapy
CPT/HCPCS: 72148; 76870; 81001; 93976; 96372; 99283; J1885

== ENCOUNTER → 2024-09-22 | Outpatient (REF) | payer OTHER ==
[~2024-09-22] MED LIST changes: +GLIP-318 PO; -GLIP5TAB20 PO; +METH-1164 PO
[2024-09-22 17:59] LABS: BASO % 0.5 % (0.0-1.0); EOS # 0.2 10^3/uL (0.0-0.5); HEMATOCRIT 51.1 % (42.0-52.0); HEMOGLOBIN 16.8 g/dl (13.5-17.5); LYMPH # 2.2 10^3/uL (1.5-5.0); LYMPH % 27.5 % (24.0-44.0); MEAN CORPUSCULAR HEMOGLOBIN 27.2 pg (27.0-33.0); MEAN CORPUSCULAR HGB CONC 32.9 g/dl (32.0-36.5); MEAN CORPUSCULAR VOLUME 82.8 fl (80.0-96.0); MONO # 0.7 10^3/uL (0.0-0.8); MONO % 8.8 % (2.0-8.0); NEUTROPHILS # 4.8 10^3/uL (1.5-8.5); NEUTROPHILS % 60.6 % (36.0-66.0); PLATELET COUNT, AUTOMATED 187 10^3/uL (150-450); RED BLOOD COUNT 6.17 10^6/uL (4.30-6.10)
[2024-09-22 18:10] LABS: ALKALINE PHOSPHATASE 73 U/L (40-129); ALT/SGPT 67 U/L (7.0-40); AST/SGOT 28 U/L (<34); BILIRUBIN,TOTAL 0.6 MG/DL (0.3-1.2); BLOOD UREA NITROGEN 27 MG/DL (9-23); CALCIUM LEVEL 9.1 MG/DL (8.3-10.6); CARBON DIOXIDE LEVEL 29 MMOL/L (20-31); CHLORIDE LEVEL 108 MMOL/L (98-107); CHOLESTEROL LEVEL 120 MG/DL (<200); CREATININE FOR GFR 0.79 MG/DL (0.70-1.30); GLOMERULAR FILTRATION RATE > 60.0 (>49); GLUCOSE, FASTING 140 MG/DL (74-106); HDL CHOLESTEROL 32.4 MG/DL (>40); LDL CHOLESTEROL 41.8 MG/DL (<100); NON-HDL-C 87.6 MG/DL; POTASSIUM SERUM 3.9 MMOL/L (3.5-5.1); SODIUM LEVEL 144 MMOL/L (136-145); TOTAL PROTEIN 7.1 G/DL (5.7-8.2); TRIGLYCERIDES LEVEL 229 MG/DL (<150)
[2024-09-22 18:13] LABS: TOTAL 25(OH) VITAMIN D 23.2 NG/ML (20.0-100.0)
== END ==
LOC: M SFHCADAM 12:13
PROVIDERS: ATTEND Physician Assistant Medical
DX: K75.81 Nonalcoholic steatohepatitis (NASH) (principal); E11.65 Type 2 diabetes mellitus with hyperglycemia; I10 Essential (primary) hypertension

== ENCOUNTER → 2024-10-12 | Outpatient (CLI) | payer OTHER | LOC: M PLAIMG 08:52 | PROVIDERS: ATTEND Internal Medicine Cardiovascular Disease | DX: R06.02 Shortness of breath (principal); I11.9 Hypertensive heart disease without heart failure; G47.33 Obstructive sleep apnea (adult) (pediatric) ==

== ENCOUNTER → 2024-10-13 | Outpatient (CLI) | payer OTHER | LOC: M RAD 07:44 | PROVIDERS: ATTEND Orthopaedic Surgery | DX: M54.50 Low back pain, unspecified (principal); R10.2 Pelvic and perineal pain; M53.3 Sacrococcygeal disorders, not elsewhere classified; M46.1 Sacroiliitis, not elsewhere classified ==

== ENCOUNTER → 2025-01-26 | Outpatient (CLI) | payer OTHER ==
[~2025-01-26] MED LIST changes: -FLOM0.4C39 PO; +TAMS-18 PO
== END ==
LOC: M PLAIMG 12:12
PROVIDERS: ATTEND Orthopaedic Surgery
DX: M47.812 Spondylosis without myelopathy or radiculopathy, cervical region (principal); Z98.1 Arthrodesis status

== ENCOUNTER → 2025-02-01 | Outpatient (CLI) | payer OTHER | LOC: M RAD 08:17 | PROVIDERS: ATTEND Orthopaedic Surgery | DX: M25.512 Pain in left shoulder (principal) ==

== ENCOUNTER → 2025-03-15 | Outpatient (REF) | payer OTHER ==
[2025-03-15 15:01] LABS: BASO # 0.0 10^3/uL (0.0-0.2); BASO % 0.5 % (0.0-1.0); EOS # 0.1 10^3/uL (0.0-0.5); EOS % 1.4 % (0.0-3.0); LYMPH # 2.1 10^3/uL (1.5-5.0); LYMPH % 27.3 % (24.0-44.0); MONO # 0.7 10^3/uL (0.0-0.8); MONO % 8.7 % (2.0-8.0); NEUTROPHILS # 4.7 10^3/uL (1.5-8.5); NEUTROPHILS % 61.6 % (36.0-66.0); PLATELET COUNT, AUTOMATED 167 10^3/uL (150-450)
[2025-03-15 15:49] LABS: FREE T4 0.99 NG/DL (0.89-1.76); TOTAL 25(OH) VITAMIN D 35.3 NG/ML (20.0-100.0)
[2025-03-15 17:50] LABS: ALT/SGPT 54 U/L (7.0-40); AST/SGOT 35 U/L (<34); CALCIUM LEVEL 9.2 MG/DL (8.3-10.6); CARBON DIOXIDE LEVEL 31 MMOL/L (20-31); CHLORIDE LEVEL 105 MMOL/L (98-107); CHOLESTEROL LEVEL 120 MG/DL (<200); CHOLESTEROL RISK RATIO 3.49 (<5); CREATININE FOR GFR 0.80 MG/DL (0.70-1.30); GLOMERULAR FILTRATION RATE > 90.0 (>49); LDL CHOLESTEROL 71.1 MG/DL (<100); NON-HDL-C 85.7 MG/DL; POTASSIUM SERUM 3.9 MMOL/L (3.5-5.1); SODIUM LEVEL 144 MMOL/L (136-145); TRIGLYCERIDES LEVEL 73 MG/DL (<150)
== END ==
LOC: M SFHCADAM 10:55
PROVIDERS: ATTEND Physician Assistant Medical
DX: E11.65 Type 2 diabetes mellitus with hyperglycemia (principal); K75.81 Nonalcoholic steatohepatitis (NASH); E55.9 Vitamin D deficiency, unspecified